=== PATIENT | female | born 1960 | race Caucasian/White ===

== ENCOUNTER → 2017-09-01 | Outpatient (CLI) | payer BC ==
[~2017-09-01] MED LIST: CHOL100010 PO; CMD5 PO; CYAN3INJ; EFF50 PO; OXYC-57 PO; SIMV40TA2 PO; VSC/5 PO
--- NOTE | 2017-09-01 15:27 | DIAGNOSTIC IMAGING REPORT ---
KUB CLINICAL HISTORY: N20.0 [id number] H/O renal calculi COMPARISON STUDY: 04/06/2015 FINDINGS: There is moderate stool throughout the colon. There is no pathologic bowel dilatation. There are postsurgical changes of a total right hip arthroplasty. Osteoarthritic changes are present within the left hip. There is a 2.5 mm calcification at the L2-3 level on the left.. A proximal left ureteral calculus cannot be excluded. IMPRESSION: 1. Fecal retention 2. No renal calculi identified although the renal shadows are largely obscured by overlying bowel gas and fecal material 3. Nonspecific 2.5 mm calcification at the L2-3 level on the left. A proximal left ureteral calculus cannot be excluded Electronically signed by: Reuben Taylor M.D. 09/01/2017 3:26 PM Dictated Date/Time: 09/01/2017 3:24 PM
== END | disposition home or self-care (01) ==
LOC: C.RAD 14:44
PROVIDERS: ATTEND Nurse Practitioner Family
DX: N20.0 Calculus of kidney (principal); Z87.442 Personal history of urinary calculi; K59.00 Constipation, unspecified

== ENCOUNTER 2022-12-27 19:31 | Inpatient (IN) ==
[2022-12-27 21:15] LABS: Appearance Urine Cloudy (Clear); Bacteria Urine Automated 4+ (Negative); Bilirubin Urine Negative (Negative); Blood Urine Trace (Negative); Color Urine Yellow; Epithelial Cell Urine Auto >30 /lpf (0-5); Glucose Urine UA Negative (Negative); Ketones Urine Negative (Negative); Leukocyte Esterase Urine 1+ (Negative); Nitrite Urine Positive (Negative); Protein Urine Trace (Negative); RBC Urine Automated 0-4 /hpf (0-4); Specific Gravity Urine 1.013 (1.000-1.030); Urobilinogen Urine Negative (Negative)
[2022-12-27 21:27] LABS: Albumin Globulin Ratio 1.6 (0.9-2); Albumin Level 4.5 gm/dl (3.4-5.0); BUN Creatinine Ratio 14.1 (10-20); Bilirubin,Total 0.5 mg/dl (0.2-1.0); Creatinine Clr Calc Pharmacy 58.9 ml/min; Est GFR (African American) 70.3 ml/min; Est GFR (Non-African American) 60.6 ml/min; Globulin 2.8 gm/dl (2.5-4.0); Potassium 4.1 mmol/L (3.5-5.1); Total Protein 7.3 gm/dl (6.0-8.3)
[2022-12-27 21:48] LABS: Basophils # (auto) 0.03 K/uL (0-0.2); Basophils % (auto) 0.3 %; Eosinophils # (auto) 0.17 K/uL (0-0.50); Eosinophils % (auto) 1.6 %; Hematocrit (blood only) 39.8 % (37.0-47.0); Hemoglobin 13.2 g/dl (12.0-16.0); Immature Granulocytes # (auto) 0.03 K/uL (0.01-0.20); Immature Granulocytes % (auto) 0.3 %; Lymphocytes % (auto) 19.5 %; Mean Corpuscular Hemoglobin 32.2 pg (25.0-34.0); Mean Corpuscular Hgb Conc 33.2 g/dL (32.0-36.0); Mean Corpuscular Volume 97.1 fL (80.0-100.0); Mean Platelet Volume 11.2 fL (9.4-12.4); Monocytes # (auto) 0.64 K/uL (0.11-0.59); Neutrophils # (auto) 7.78 K/uL (1.40-6.50); Neutrophils % (auto) 72.3 %; Platelet Count 141 K/uL (130-400); RDW Coefficient of Variation 13.4 % (11.5-14.5); RDW Standard Deviation 47.8 fL (36.4-46.3); White Blood Count 10.75 K/ul (4.8-10.8)
[2022-12-27] MEDS ORDERED: HYDROmorphone INJ 0.5 MG/0.5 ML SYR IV STA (21:54)
[2022-12-27] MEDS ORDERED: SODIUM CHLORIDE 0.9% 500 ML IV ONE (21:54)
[2022-12-27] MEDS ORDERED: ONDANSETRON INJ 2 MG/ML 2 ML VIAL IV STA (21:54)
[2022-12-27] MEDS ORDERED: cefTRIAXone SODIUM 1,000 MG in DEXTROSE 5% AD-VAN 50 ML IV STA (21:56)
[2022-12-27] MEDS ORDERED: OPTIRAY 350 100ml IV ONE (23:01)
--- NOTE | 2022-12-28 00:01 | Emergency Department Note ---
History of Present Illness General Chief complaint: GI Assessment Stated complaint: ABDOMINAL PAIN, REF BY Time Seen by Provider: 12/27/22 21:47 History of Present Illness Maximum Pain Intensity: 9 This 62-year-old female presents to the ER complaining of lower abdominal pain no bowel movement for the past few days she is concerned she has a recurrent bowel obstruction. Patient took Imodium earlier in the week as she had diarrhea and for the past 2 days she had no bowel movement. She had a colon resection in the past. She had adhesions lysed in the past. Patient denies chest pain, dyspnea, fevers, flulike illness. No urinary symptoms. Home Medications Medication Instructions Recorded Confirmed Type acetaminophen 500 mg tablet 1,000 mg PO DIRECTED PRN Pain 02/21/19 12/27/22 History (Tylenol Extra Strength) aspirin 81 mg tablet,delayed 81 mg PO HS 02/21/19 12/27/22 History release (Scot Low Dose Aspirin) atorvastatin 80 mg tablet 80 mg PO HS 02/21/19 12/27/22 History bupropion HCl 150 mg tablet,12 hr 150 mg PO HS 02/21/19 12/27/22 History sustained-release clopidogrel 75 mg tablet 75 mg PO HS 02/21/19 12/27/22 History cyanocobalamin (vitamin B-12) 1,000 mcg PO HS 02/21/19 12/27/22 History 1,000 mcg tablet (Vitamin B-12) pantoprazole 40 mg tablet,delayed 40 mg PO HS 02/21/19 12/27/22 History release solifenacin 10 mg tablet 10 mg PO HS 06/18/19 12/27/22 History Saccharomyces boulardii 250 mg 250 mg PO HS 12/27/22 12/27/22 History capsule (Florastor) Allergies Allergy/AdvReac Type Severity Reaction Status Date / Time morphine AdvReac Intermediate Vomiting Verified 12/27/22 23:01 Past Med/Surg History Medical History GERD (gastroesophageal reflux disease) Hemorrhoids Hyperlipidemia On clopidogrel therapy Surgical History H/O colectomy H/O knee surgery H/O: hysterectomy Family History Other No significant family history Social History Smoking Status: Current every day smoker Tobacco Type: Cigarettes Preferred Language: Slovenian marital status: current occupational status: employed Feels Safe at Home: Yes Review of Systems A total of 10 systems reviewed and were otherwise negative Physical Exam Vital Signs Vital Signs - 24 hr 12/27/22 19:38 12/28/22 00:43 12/28/22 01:56 Temperature 36.9 C Temperature Source Temporal Artery Scan Pulse Rate 111 H 61 Pulse Rate [Left Finger] 66 Respiratory Rate 18 18 Respiratory Effort / Characteristics Non-Labored Spontaneous Respiratory Depth Normal Blood Pressure 129/68 Blood Pressure [Right Arm] 115/57 L Blood Pressure Mean 88 Blood Pressure Mean [Right Arm] 76 Pulse Oximetry 97 99 Oxygen Delivery Method Room Air Room Air Sepsis Recent Fever Within 48 Hours No Sepsis New/Unexplained Change in Mental Status No Sepsis Action Taken by Nursing No Action Required 12/27/22 22:11 12/28/22 02:07 Temperature Temperature Source Pulse Rate 73 Pulse Rate [Left Finger] 61 Respiratory Rate 18 Respiratory Effort / Characteristics Respiratory Depth Blood Pressure Blood Pressure [Right Arm] 127/57 L Blood Pressure Mean Blood Pressure Mean [Right Arm] 80 Pulse Oximetry 95 Oxygen Delivery Method Room Air Sepsis Recent Fever Within 48 Hours Sepsis New/Unexplained Change in Mental Status Sepsis Action Taken by Nursing VITALS: Vitals are noted on the nurse's note and reviewed by myself. Vital signs stable. GENERAL: Pleasant female, in no acute distress, nondiaphoretic, well-developed well-nourished. SKIN: The skin was without rashes, erythema, edema, or bruising. There is no tenting of the skin. Capillary reflex less than 2 seconds. HEAD: Normocephalic atraumatic. EARS: External auditory canals clear, EYES: Pupils equal round and reactive to light and accommodation. Conjunctivae without injection, sclerae without icterus. Extraocular movements intact. NOSE: Patent, turbinates without inflammation or discharge. MOUTH: Mucous membranes moist. Pharynx without erythema or exudate. Uvula midline. Airway patent. Tongue does not deviate. NECK: Supple without nuchal rigidity. No lymphadenopathy. No thyromegaly. Cervical spine is nontender. No JVD. HEART: Regular rate and rhythm LUNGS: Clear to auscultation bilaterally without wheezes, rales or rhonchi. No retractions or accessory muscle use. ABDOMEN: Positive bowel sounds x 4. Normal tympanic percussion. Soft, tender lower abdomen, without masses or organomegaly. Kaiser sign negative. No guarding or rebound tenderness. No CVA tenderness MUSCULOSKELETAL: No muscle atrophy, erythema, or edema noted. NEURO: Patient was alert and oriented to person place and time. Normal sensation to light and sharp touch. No focal neurological deficits. Course Administered Medications Discontinued Medications Hydromorphone HCl (Hydromorphone Inj 0.5 Mg/0.5 Ml Syr) 0.5 mg IV NOW STA Stop: 12/27/22 21:55 Last Admin: 12/27/22 22:06 Dose: 0.5 mg Documented By: BETTY Hydromorphone HCl (Hydromorphone Inj 0.5 Mg/0.5 Ml Syr) 0.5 mg IV NOW STA Stop: 12/28/22 00:25 Last Admin: 12/28/22 00:40 Dose: 0.5 mg Documented By: BOB Hydromorphone HCl (Hydromorphone Inj 0.5 Mg/0.5 Ml Syr) 0.5 mg IV NOW STA Stop: 12/28/22 02:36 Last Admin: 12/28/22 02:45 Dose: 0.5 mg Documented By: BETTY Sodium Chloride (Nss) 500 mls @ 999 mls/hr IV .Q31M ONE Stop: 12/27/22 22:24 Last Infusion: 12/27/22 22:37 Dose: 0 mls/hr Documented By: Admin: 12/27/22 22:06 Dose: 999 mls/hr Documented By: BETTY Ceftriaxone Sodium 1,000 mg/ (Dextrose) 50 mls @ 100 mls/hr IV NOW STA Stop: 12/27/22 22:25 Last Infusion: 12/27/22 23:59 Dose: 0 mls/hr Documented By: Admin: 12/27/22 22:29 Dose: 100 mls/hr Documented By: BETTY Ioversol (Optiray 350 100ml) 84 ml IV ONCE ONE Stop: 12/27/22 23:02 Last Admin: 12/27/22 23:02 Dose: 84 ml Documented By: MADELIN Ondansetron HCl (Ondansetron Inj 2 Mg/Ml 2 Ml Vial) 4 mg IV NOW STA Stop: 12/27/22 21:55 Last Admin: 12/27/22 22:06 Dose: 4 mg Documented By: BETTY Medical Decision Making Medical Records Attestation: I reviewed the patient's medical records. Home Medications Current Medication List: was personally reviewed by me Laboratory Data Attestation: I reviewed the patient's lab results. 12/27/22 20:46 12/27/22 20:46 Lab Results 12/27/22 12/27/22 12/27/22 Range/Units 20:46 20:46 Unknown WBC 10.75 (4.8-10.8) K/ul RBC 4.10 L (4.20-5.40) M/uL Hgb 13.2 (12.0-16.0) g/dl Hct 39.8 (37.0-47.0) % MCV 97.1 (80.0-100.0) fL MCH 32.2 (25.0-34.0) pg MCHC 33.2 (32.0-36.0) g/dL RDW Std Deviation 47.8 H (36.4-46.3) fL RDW Coeff of Lela 13.4 (11.5-14.5) % Plt Count 141 (130-400) K/uL MPV 11.2 (9.4-12.4) fL Immature Gran % (Auto) 0.3 % Neut % (Auto) 72.3 % Lymph % (Auto) 19.5 % [place] % (Auto) 6.0 % Eos % (Auto) 1.6 % Baso % (Auto) 0.3 % Neut # (Auto) 7.78 H (1.40-6.50) K/uL Lymph # (Auto) 2.10 (1.2-3.4) K/uL [place] # (Auto) 0.64 H (0.11-0.59) K/uL Eos # (Auto) 0.17 (0-0.50) K/uL Baso # (Auto) 0.03 (0-0.2) K/uL Immature Gran # (Auto) 0.03 (0.01-0.20) K/uL Sodium 141 (136-145) mmol/L Potassium 4.1 (3.5-5.1) mmol/L Chloride 108 H (98-107) mmol/L Carbon Dioxide 27 (21-32) mmol/L Anion Gap 6 (3-11) BUN 14 (6-23) mg/dl Creatinine 0.99 (0.6-1.2) mg/dl Est Cr Clr Drug Dosing 58.9 ml/min Est GFR ( Amer) 70.3 ml/min Est GFR (Non-Af Amer) 60.6 ml/min BUN/Creatinine Ratio 14.1 (10-20) Glucose 95 (70-99(Fasting)) mg/dl Calcium 10.0 (8.5-10.1) mg/dl Total Bilirubin 0.5 (0.2-1.0) mg/dl AST 16 (13-39) U/L ALT 16 (7-52) U/L Alkaline Phosphatase 92 (34-104) U/L Total Protein 7.3 (6.0-8.3) gm/dl Albumin 4.5 (3.4-5.0) gm/dl Globulin 2.8 (2.5-4.0) gm/dl Albumin/Globulin Ratio 1.6 (0.9-2) Lipase 19 (11-82) U/L Urine Color Yellow Urine Appearance Cloudy A (Clear) Urine pH 6.0 (4.5-7.5) Ur Specific [place] 1.013 (1.000-1.030) Urine Protein Trace H (Negative) Urine Glucose (UA) Negative (Negative) Urine Ketones Negative (Negative) Urine Blood Trace H (Negative) Urine Nitrite Positive A (Negative) Urine Bilirubin Negative (Negative) Urine Urobilinogen Negative (Negative) Ur Leukocyte Esterase 1+ H (Negative) Urine WBC (Auto) 10-30 H (0-5) /hpf Urine RBC (Auto) 0-4 (0-4) /hpf U Hyaline Cast (Auto) 1-5 (0-5) /lpf U Epithel Cells (Auto) >30 H (0-5) /lpf Urine Bacteria (Auto) 4+ H (Negative) Imaging Data Attestation: I personally reviewed and interpreted this imaging study as follows: Radiologist's Impression: Abdomen/Pelvis CT 12/27/22 21:54 Exam(s): CT ABDOMEN + PELVIS With Contrast IV Amt: 84ml EXAM: CT Abdomen and Pelvis With Intravenous Contrast CLINICAL HISTORY: Reason for exam: lower abd pain, hx SBO, no BM, UTI. TECHNIQUE: Axial computed tomography images of the abdomen and pelvis with intravenous contrast. CTDI is 10.87 mGy and DLP is 548.92 mGy-cm. Automated exposure control was utilized for the study. A dose lowering technique was utilized adhering to the principles of ALARA. CONTRAST: Patient received 84ml of IV contrast COMPARISON: No relevant prior studies available. FINDINGS: Lung bases: Unremarkable. No mass. No consolidation. ABDOMEN: Liver: Unremarkable. No mass. Gallbladder and bile ducts: Unremarkable. No calcified stones. No ductal dilation. Pancreas: Unremarkable. No mass. No ductal dilation. Spleen: Unremarkable. No splenomegaly. Adrenals: Unremarkable. No mass. Kidneys and ureters: Unremarkable. No solid mass. No hydronephrosis. Stomach and bowel: There is moderate fluid distention of proximal small bowel loops. The appearance is compatible with a small bowel obstruction, transition point is suggested in the right hemiabdomen (image 55 series 2). No evidence for perforation. No mucosal thickening. PELVIS: Appendix: No findings to suggest acute appendicitis. Bladder: Unremarkable. No mass. Reproductive: Status post hysterectomy. ABDOMEN and PELVIS: Intraperitoneal space: Unremarkable. No free air. No significant fluid collection. Bones/joints: Status post right total hip arthroplasty. No acute fracture. No dislocation. Soft tissues: Unremarkable. Vasculature: There is diffuse atherosclerotic calcification of the aorta and its major branch vessels. No abdominal aortic aneurysm. Lymph nodes: Unremarkable. No enlarged lymph nodes. IMPRESSION: Small bowel obstruction with transition point suggested in the low right hemiabdomen. No evidence for perforation. Electronically signed by: Epifanio Cummins MD 12/28/22 01:12 AM [facility] Narrative Prior records/ancillary studies reviewed. Triage Nursing notes reviewed. Additional history obtained from family. The patient's history was concerning for abdominal pain. Differential diagnosis: Etiologies such as appendicitis, diverticulitis, PUD, biliary pathology, UTI, pancreatitis, obstruction, mesenteric ischemia, aortic pathology, infections, inflammatory bowel disease, renal colic, as well as others were entertained. Physical examination findings: As above. ER treatment provided: An order was placed for continuous cardiac monitoring. The monitor shows a rate of 60-1 50 with a sinus rhythm per my Independent interpretation. IV fluids, Dilaudid, Zofran, Rocephin were ordered On reassessment the patient felt better. Diagnostics interpreted by me: The labs Independently Interpreted by myself revealed urine concerning for infection and sent for culture. No worrisome leukocytosis [address] [address] / Director: Corwin Cedillo M.D. Clinical Laboratory Report Name: CHELSEA KIM Acct: [id number] Status: ON LICENSE OF [facility] : 1960 [facility] [place] Date: 05/03/22 Age: 62 Sex: F Dis Date: Loc: Emergency Department Spec: [id number] Collected: 05/03/22 Received: 05/03/[address]: MANDY,ED Copy To: Long Bender M.D. Source: Urine,Clean Catch OV Order: Ordered: Urine Culture Procedure Result Verified Site Urine Culture Final 05/05/22 Organism 1 Escherichia coli [place] Count >100,000 CFU/ml Sens Sensitivities to Follow E coli RX M.I.C. --- --------- Amox/Clav S <=8/4 Ampicillin S <=8 Amp/Sul S <=8/4 Cefazolin S <=2 Cefepime S <=2 Ceftriaxone S <=1 Ciprofloxacin R >2 Ertapenem S <=0.5 Gentamicin S <=4 Levofloxacin R >4 Meropenem S <=1 Nitrofurantoin S <=32 Tobramycin S <=4 Trimeth/Sulfa R >2/38 Pip/Tazo S <=16 S = SENSITIVE I = INTERMEDIATE R = RESISTANT Imaging studies: CT is concerning for bowel obstruction per my independent interpretation Consultation: A consultation was placed with the hospitalist. The case was discussed and diagnostics were reviewed. The patient was evaluated in the ER for further treatment. Exam and history seem consistent with small bowel obstruction And urinary tract infection. Prior urine culture was reviewed pPatient was given multiple rounds of pain medication. She was not vomiting. Imaging was concerning for bowel obstruction. Medicine was consulted and she will be admitted to the medical service. Patient is agreeable By the evaluation outlined above emergent etio logies such as appendicitis, diverticulitis, PUD, biliary pathology, pancreatitis, mesenteric ischemia, aortic pathology, inflammatory bowel disease, renal colic, as well as others were deemed relatively unlikely. The pt informed about the findings as listed above. All questions were answered and pleased with the treatment. The chart was completed utilizing [employer] Speech voice recognition software. Grammatical errors, random word insertions, pronoun errors, and incomplete sentences are an occassional consequence of this system due to software limitations, ambient noise, and hardware issues. Any formal questions or concerns about the content, text, or information contained within the body of this dictation should be directly addressed to the physician therapy administrative assistant for clarification. Impression & Plan SBO (small bowel obstruction), Acute UTI Discharge Plan Visit Data Chief Complaint: GI Assessment Stated Complaint: ABDOMINAL PAIN, REF BY ED Provider: Long Bender ED Midlevel Provider: Stefanie Cummins Discharge Problem: SBO (small bowel obstruction), Acute UTI Patient Disposition: Admitted As Inpatient Condition: Good Forms Stand Alone Forms: [place] Prescriptions Prescriptions: No Action solifenacin 10 mg tablet 10 mg PO HS bupropion HCl 150 mg Tablet Sustained-Release 12 Hr 150 mg PO HS atorvastatin 80 mg Tablet 80 mg PO HS cyanocobalamin (vitamin B-12) [Vitamin B-12] 1,000 mcg Tablet 1,000 mcg PO HS clopidogrel 75 mg Tablet 75 mg PO HS aspirin [Scot Low Dose Aspirin] 81 mg Tablet,Delayed Release (Dr/Ec) 81 mg PO HS acetaminophen [Tylenol Extra Strength] 500 mg Tablet 1,000 mg PO DIRECTED PRN (Reason: Pain) pantoprazole 40 mg tablet,delayed release (DR/EC) 40 mg PO HS Saccharomyces boulardii [Florastor] 250 mg capsule 250 mg PO HS Rx Instructions: PER PT "HAVEN'T HAD FOR A COUPLE OF DAYS". Referrals Referrals: Jerry Asher MD [Primary Care Provider] -
[2022-12-28] MEDS ORDERED: HYDROmorphone INJ 0.5 MG/0.5 ML SYR IV STA ×2 (00:24→02:35)
--- NOTE | 2022-12-28 01:13 | CT Scan Report ---
Exam(s): CT ABDOMEN + PELVIS With Contrast IV Amt: 84ml EXAM: CT Abdomen and Pelvis With Intravenous Contrast CLINICAL HISTORY: Reason for exam: lower abd pain, hx SBO, no BM, UTI. TECHNIQUE: Axial computed tomography images of the abdomen and pelvis with intravenous contrast. CTDI is 10.87 mGy and DLP is 548.92 mGy-cm. Automated exposure control was utilized for the study. A dose lowering technique was utilized adhering to the principles of ALARA. CONTRAST: Patient received 84ml of IV contrast COMPARISON: No relevant prior studies available. FINDINGS: Lung bases: Unremarkable. No mass. No consolidation. ABDOMEN: Liver: Unremarkable. No mass. Gallbladder and bile ducts: Unremarkable. No calcified stones. No ductal dilation. Pancreas: Unremarkable. No mass. No ductal dilation. Spleen: Unremarkable. No splenomegaly. Adrenals: Unremarkable. No mass. Kidneys and ureters: Unremarkable. No solid mass. No hydronephrosis. Stomach and bowel: There is moderate fluid distention of proximal small bowel loops. The appearance is compatible with a small bowel obstruction, transition point is suggested in the right hemiabdomen (image 55 series 2). No evidence for perforation. No mucosal thickening. PELVIS: Appendix: No findings to suggest acute appendicitis. Bladder: Unremarkable. No mass. Reproductive: Status post hysterectomy. ABDOMEN and PELVIS: Intraperitoneal space: Unremarkable. No free air. No significant fluid collection. Bones/joints: Status post right total hip arthroplasty. No acute fracture. No dislocation. Soft tissues: Unremarkable. Vasculature: There is diffuse atherosclerotic calcification of the aorta and its major branch vessels. No abdominal aortic aneurysm. Lymph nodes: Unremarkable. No enlarged lymph nodes. IMPRESSION: Small bowel obstruction with transition point suggested in the low right hemiabdomen. No evidence for perforation. Electronically signed by: Epifanio Cummins MD 12/28/22 01:12 AM
--- NOTE | 2022-12-28 04:32 | History and Physical Report ---
DATE OF ADMISSION: 12/27/2022. CHIEF COMPLAINT: Abdominal pain. HISTORY OF PRESENT ILLNESS: This is a 62-year-old female with past medical history significant for hyperlipidemia, peripheral vascular disease, history of depression, history of colon polyps, status post laparoscopic colectomy, history of bowel obstruction, presents with abdominal pain. The patient had laparoscopic partial colectomy with coloproctostomy in January 2019 at [facility] [place] then after that in June, she did have small-bowel obstruction 5 months postop that was managed with exploratory laparotomy and lysis of adhesions. The patient since surgery is having some fecal incontinence and and she saw recently colorectal surgeon at [facility] and recommended to take Imodium and also fiber supplement, which she was taking.But last Friday, she started to have abdominal discomfort. She stopped taking Imodium. Stools are more solid and yesterday she developed significant abdominal pain and today it got worse. She called Surgery at [facility] and they recommended if the pain does not get better, come to the ER. That is the reason she came here. Her pain is getting worse, 10/10 severity in the lower abdomen. Her last bowel movement was in Friday, was small amount and she is passing small amount of gas. Denies any nausea, vomiting. Required Multiple doses pain medications in the ER. Denies any chest pain, no shortness of breath, no cough, no fevers, no headache, no dizziness, no blurred visions, no earache, no runny nose, no sore throat, no difficulty swallowing. She is able to take her pills. No blood in the stools. No hematuria. No burning micturition, no frequent urination. ALLERGIES: MORPHINE. PAST MEDICAL HISTORY: As mentioned above. PAST SURGICAL HISTORY: Attach bladder/ urethra simple, colonoscopy with biopsy, colonoscopy with multiple polyps taken out, EGDs, fem-pop arterial revascularization with stent and angioplasty, iliac artery revascularization, right hip replacement, flexible sigmoidoscopy, knee arthroscopy, laparoscopic partial colectomy with coloproctostomy in January 2019, exploration of abdomen in 06/2019, laser trabeculoplasty, appendectomy, cataract surgeries, total abdominal hysterectomy with removal of tubes. MEDICATIONS: The patient is on Tylenol Extra Strength 1000 mg p.o. p.r.n., aspirin 81 mg p.o. at bedtime, atorvastatin 80 mg p.o. at bedtime, bupropion 150 mg p.o. at bedtime, Plavix 75 mg p.o. at bedtime, vitamin B12 1000 mcg p.o. at bedtime, Protonix 40 mg p.o. at bedtime, Florastor 250 mg p.o. at bedtime, solifenacin 10 mg p.o. at bedtime. FAMILY HISTORY: Significant for father has abdominal aortic aneurysm and heart disorder; mother has MIs. SOCIAL HISTORY: , currently smoking half pack of cigarettes daily. Alcohol, social drinking, no drug use. REVIEW OF SYSTEMS: As per HPI. Rest of review of systems is negative. PHYSICAL EXAMINATION: GENERAL: The patient is of moderate build, not in acute distress. VITAL SIGNS: Temperature 36.9, pulse 61, respiratory rate 18, blood pressure 127/57, oxygen 95% on room air. HEENT: Pupils equal, round and reactive to light. Oral mucosa moist. NECK: No JVD, no neck masses. CARDIOVASCULAR: S1 and S2 heard. Regular rate and rhythm. No murmur, no gallop. RESPIRATORY SYSTEM: Normal AP diameter. No accessory muscle use. No wheezing or crackles. ABDOMEN: Soft, bowel sounds sluggish. Diffuse tenderness, more in the left lower quadrant with mild guarding, no rigidity, no distention. CENTRAL NERVOUS SYSTEM: Cranial nerves II through XII grossly intact, nonfocal. EXTREMITIES: No edema, no erythema. LABORATORY DATA: WBC 10.7, hemoglobin 13.2, hematocrit 39.8, platelets 141. Sodium 141, potassium 4.1, chloride 108, bicarbonate 27, BUN 14, creatinine 0.99, serum glucose 95, calcium 10, total bilirubin 0.5, AST 16, ALT 16, alkaline phosphatase 92, lipase 19. Urinalysis, positive for nitrite, +1 leukocyte esterase, +4 bacteria. SARS-CoV-2 rapid test negative. IMAGING DATA: CT abdomen and pelvis with IV contrast shows small-bowel obstruction with transition point in the low right tereza abdomen. No evidence of perforation. ASSESSMENT AND PLAN: This is a 62-year-old female who presents with small-bowel obstruction. 1. Small-bowel obstruction. The patient has history of laparoscopic partial colectomy with coloproctostomy because of the colon polyps in January 2019. After that she has one bowel obstruction in June 2019 and status post exploratory laparotomy , presents with abdominal pain and found to have bowel obstruction. The patient has no nausea or vomiting.Will currently keep her n.p.o., IV fluids, IV antiemetics, IV Dilaudid p.r.n. Consult surgery in the a.m. Monitor in the medical floor. 2. Urinary tract infection. Started on Rocephin. Follow the cultures. 3. History of peripheral vascular disease, status post surgical procedures in the past. Continue her aspirin, Plavix and statin for now. 4. Depression. On bupropion. 5. Gastroesophageal reflux disease. On Protonix. 6. Deep venous thrombosis prophylaxis. Lovenox. DISPOSITION: Closely monitor in the medical floor. PT, OT prior to discharge. Social service to help with discharge planning. Job ID: [id number] [id number]
[2022-12-28] MEDS ORDERED: ACETAMINOPHEN 325 MG TAB PO PRN (04:49)
[2022-12-28] MEDS ORDERED: HYDROmorphone INJ 0.5 MG/0.5 ML SYR IV PRN (04:49)
[2022-12-28] MEDS ORDERED: ONDANSETRON INJ 2 MG/ML 2 ML VIAL IV PRN (04:49)
[2022-12-28] MEDS: D5W AND 1/2NSS 1,000 ML IV SCH ×3 (05:23→22:18)
[2022-12-28 07:04] LABS: Basophils # (auto) 0.02 K/uL (0-0.2); Basophils % (auto) 0.3 %; Eosinophils # (auto) 0.14 K/uL (0-0.50); Eosinophils % (auto) 1.9 %; Hematocrit (blood only) 34.7 % (37.0-47.0); Hemoglobin 11.1 g/dl (12.0-16.0); Immature Granulocytes # (auto) 0.03 K/uL (0.01-0.20); Immature Granulocytes % (auto) 0.4 %; Lymphocytes # (auto) 1.67 K/uL (1.2-3.4); Mean Corpuscular Hemoglobin 31.5 pg (25.0-34.0); Mean Corpuscular Volume 98.6 fL (80.0-100.0); Mean Platelet Volume 11.5 fL (9.4-12.4); Monocytes # (auto) 0.47 K/uL (0.11-0.59); Monocytes % (auto) 6.5 %; Neutrophils # (auto) 4.94 K/uL (1.40-6.50); Neutrophils % (auto) 67.9 %; Platelet Count 110 K/uL (130-400); RDW Coefficient of Variation 13.3 % (11.5-14.5); Red Blood Count 3.52 M/uL (4.20-5.40); White Blood Count 7.27 K/ul (4.8-10.8)
[2022-12-28 07:14] LABS: Calcium 8.7 mg/dl (8.5-10.1); Creatinine Clr Calc Pharmacy 58.8 ml/min; Est GFR (African American) 69.4 ml/min; Est GFR (Non-African American) 59.9 ml/min; Magnesium 1.7 mg/dl (1.7-2.4); Potassium 3.9 mmol/L (3.5-5.1)
[2022-12-28] MEDS: ENOXAPARIN INJ 40 MG/0.4 ML SYR SQ SCH (09:05)
--- NOTE | 2022-12-28 11:09 | Surgery Consultation ---
Date of Consultation December 28, 2022 Assessment & Plan (1) SBO (small bowel obstruction): pt is a 62 year-old female who was admitted to hospital for SBO, IMP: SBO, Plan, no emergent surgery indication now, conservative treatment, NPO, IV fluid, control pain repeat KUB, labs tomorrow, may need NG tube insertion if pt develops nausea and vomiting, pt dose not want have NG tube now, I also indicated pt may need surgery if pt's symptoms are getting worse, pt said she prefer to back [facility] for her surgery if she need to surgery done, will F/U. History of Present Illness Reason for Consultation: SBO Requesting Physician: Rodrigo Dunne MD Attending Physician: Rodrigo Dunne MD History of Present Illness CHIEF COMPLAINT: Abdominal pain. HISTORY OF PRESENT ILLNESS: This is a 62-year-old female with past medical history significant for hyperlipidemia, peripheral vascular disease, history of depression, history of colon polyps, status post laparoscopic colectomy, history of bowel obstruction, presents with abdominal pain. The patient had laparoscopic partial colectomy with coloproctostomy in January 2019 at [facility] then after that in June, she did have small-bowel obstruction 5 months postop that was managed with exploratory laparotomy and lysis of adhesions. The patient since surgery is having some fecal incontinence and and she saw recently colorectal surgeon at [facility] and recommended to take Imodium and also fiber supplement, which she was taking.But last Friday, she started to have abdominal discomfort. She stopped taking Imodium. Stools are more solid and yesterday she developed significant abdominal pain and today it got worse. She called Surgery at [facility] and they recommended if the pain does not get better, come to the ER. That is the reason she came here. Her pain is getting worse, 10/10 severity in the lower abdomen. Her last bowel movement was in Friday, was small amount and she is passing small amount of gas. Denies any nausea, vomiting. Required Multiple doses pain medications in the ER. Denies any chest pain, no shortness of breath, no cough, no fevers, no headache, no dizziness, no blurred visions, no earache, no runny nose, no sore throat, no difficulty swallowing. She is able to take her pills. No blood in the stools. No hematuria. No burning micturition, no frequent urination. I ( Barrie Fuller MD ) got a call for consult SBO, I reviewed pt;'s H/P, labs and CT scan with pt, pt is still have some RLQ pain, no nausea, no vomiting, no fever, not pass gas or BM for 2-3 days, ALLERGIES: MORPHINE. PAST MEDICAL HISTORY: As mentioned above. PAST SURGICAL HISTORY: Attach bladder/ urethra simple, colonoscopy with biopsy, colonoscopy with multiple polyps taken out, EGDs, fem-pop arterial revascularization with stent and angioplasty, iliac artery revascularization, right hip replacement, flexible sigmoidoscopy, knee arthroscopy, laparoscopic partial colectomy with coloproctostomy in January 2019, exploration of abdomen in 06/2019, laser trabeculoplasty, appendectomy, cataract surgeries, total abdominal hysterectomy with removal of tubes. MEDICATIONS: The patient is on Tylenol Extra Strength 1000 mg p.o. p.r.n., aspirin 81 mg p.o. at bedtime, atorvastatin 80 mg p.o. at bedtime, bupropion 150 mg p.o. at bedtime, Plavix 75 mg p.o. at bedtime, vitamin B12 1000 mcg p.o. at bedtime, Protonix 40 mg p.o. at bedtime, Florastor 250 mg p.o. at bedtime, solifenacin 10 mg p.o. at bedtime. FAMILY HISTORY: Significant for father has abdominal aortic aneurysm and heart disorder; mother has MIs. SOCIAL HISTORY: , currently smoking half pack of cigarettes daily. Alcohol, social drinking, no drug use. REVIEW OF SYSTEMS: As per HPI. Rest of review of systems is negative. Allergies Allergy/AdvReac Type Severity Reaction Status Date / Time morphine AdvReac Intermediate Vomiting Verified 12/27/22 23:01 Home Medications Medication Instructions Recorded Confirmed Type acetaminophen 500 mg tablet 1,000 mg PO DIRECTED PRN Pain 02/21/19 12/27/22 History (Tylenol Extra Strength) aspirin 81 mg tablet,delayed 81 mg PO HS 02/21/19 12/27/22 History release (Scot Low Dose Aspirin) atorvastatin 80 mg tablet 80 mg PO HS 02/21/19 12/27/22 History bupropion HCl 150 mg tablet,12 hr 150 mg PO HS 02/21/19 12/27/22 History sustained-release clopidogrel 75 mg tablet 75 mg PO HS 02/21/19 12/27/22 History cyanocobalamin (vitamin B-12) 1,000 mcg PO HS 02/21/19 12/27/22 History 1,000 mcg tablet (Vitamin B-12) pantoprazole 40 mg tablet,delayed 40 mg PO HS 02/21/19 12/27/22 History release solifenacin 10 mg tablet 10 mg PO HS 06/18/19 12/27/22 History Saccharomyces boulardii 250 mg 250 mg PO HS 12/27/22 12/27/22 History capsule (Florastor) Patient History Medical History GERD (gastroesophageal reflux disease) Hemorrhoids Hyperlipidemia On clopidogrel therapy Surgical History H/O colectomy H/O knee surgery H/O: hysterectomy Family History Other No significant family history Social History Smoking Status: Current every day smoker Tobacco Type: Cigarettes Cigarettes Per Day: 1/2 pack; Do You Dip or Chew Tobacco: No; Tobacco Cessation Education Requested by Patient: No Hx Alcohol Use: No Hx Substance Use: No Preferred Language: Azerbaijani Communication Ability: Effective 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 Beliefs That Will Affect Care: None marital status: Current Living Situation: Alone current occupational status: employed Other Information That Helps Us Care for You: No Feels Safe at Home: Yes Safety Concerns: Feels Safe At This Time Assistive Devices: Denture - Upper, Denture - Lower and Glasses Assistive Devices Comment: dentures partial bottom and full upper and glasses with patient Review of Systems Constitutional: as per Subjective / HPI Eyes: as per Subjective / HPI Respiratory: as per Subjective / HPI Cardiovascular: as per Subjective / HPI Gastrointestinal: S/p colectomy Genitourinary: as per Subjective / HPI Neurologic: as per Subjective / HPI Psychiatric: as per Subjective / HPI Endocrine: as per Subjective / HPI Hematologic / Lymphatic: as per Subjective / HPI Physical Exam Constitutional: WD/WN, vitals as above Eyes: PERRL, conjunctivae normal, anicteric sclerae Neck: trachea midline, no thyromegaly Respiratory: normal respiratory effort, lungs clear to auscultation Cardiovascular: RRR, no murmur, no edema Gastrointestinal (Abdomen): soft, mild tenderness at RLQ, no rebound pain, no distend, BS +, middle line scar, Musculoskeletal: no cyanosis or clubbing, extremities motor strength 5/5 Neurologic: patellar DTR's 2+ bilat, sensation intact Psychiatric: A+Ox3, euthymic affect Results & Data Vital Signs (Past 12 Hours) Vital Signs Temp Pulse Pulse Resp BP Pulse Ox O2 Del Method 12/28/22 07:30 36.8 C 61 16 109/69 98 Room Air 12/28/22 04:40 36.8 C 86 16 139/40 L 96 Room Air 12/28/22 04:18 79 18 115/61 93 Room Air 12/28/22 02:07 61 18 127/57 L 95 Room Air 12/28/22 01:56 61 12/28/22 00:43 66 18 115/57 L 99 Room Air Laboratory Results Abnormal lab results 12/27/22 12/27/22 12/27/22 Range/Units 20:46 20:46 Unknown RBC 4.10 L (4.20-5.40) M/uL Hgb (12.0-16.0) g/dl Hct (37.0-47.0) % RDW Std Deviation 47.8 H (36.4-46.3) fL Plt Count (130-400) K/uL Neut # (Auto) 7.78 H (1.40-6.50) K/uL [place] # (Auto) 0.64 H (0.11-0.59) K/uL Chloride 108 H (98-107) mmol/L Urine Appearance Cloudy A (Clear) Urine Protein Trace H (Negative) Urine Blood Trace H (Negative) Urine Nitrite Positive A (Negative) Ur Leukocyte Esterase 1+ H (Negative) Urine WBC (Auto) 10-30 H (0-5) /hpf U Epithel Cells (Auto) >30 H (0-5) /lpf Urine Bacteria (Auto) 4+ H (Negative) 12/28/22 12/28/22 Range/Units 06:01 06:01 RBC 3.52 L (4.20-5.40) M/uL Hgb 11.1 L (12.0-16.0) g/dl Hct 34.7 L (37.0-47.0) % RDW Std Deviation 48.0 H (36.4-46.3) fL Plt Count 110 L (130-400) K/uL Neut # (Auto) (1.40-6.50) K/uL Carolina # (Auto) (0.11-0.59) K/uL Chloride 109 H (98-107) mmol/L Urine Appearance (Clear) Urine Protein (Negative) Urine Blood (Negative) Urine Nitrite (Negative) Ur Leukocyte Esterase (Negative) Urine WBC (Auto) (0-5) /hpf U Epithel Cells (Auto) (0-5) /lpf Urine Bacteria (Auto) (Negative) Diagnostic Findings Exam(s): CT ABDOMEN + PELVIS With Contrast IV Amt: 84ml EXAM: CT Abdomen and Pelvis With Intravenous Contrast CLINICAL HISTORY: Reason for exam: lower abd pain, hx SBO, no BM, UTI. TECHNIQUE: Axial computed tomography images of the abdomen and pelvis with intravenous contrast. CTDI is 10.87 mGy and DLP is 548.92 mGy-cm. Automated exposure control was utilized for the study. A dose lowering technique was utilized adhering to the principles of ALARA. CONTRAST: Patient received 84ml of IV contrast COMPARISON: No relevant prior studies available. FINDINGS: Lung bases: Unremarkable. No mass. No consolidation. ABDOMEN: Liver: Unremarkable. No mass. Gallbladder and bile ducts: Unremarkable. No calcified stones. No ductal dilation. Pancreas: Unremarkable. No mass. No ductal dilation. Spleen: Unremarkable. No splenomegaly. Adrenals: Unremarkable. No mass. Kidneys and ureters: Unremarkable. No solid mass. No hydronephrosis. Stomach and bowel: There is moderate fluid distention of proximal small bowel loops. The appearance is compatible with a small bowel obstruction, transition point is suggested in the right hemiabdomen (image 55 series 2). No evidence for perforation. No mucosal thickening. PELVIS: Appendix: No findings to suggest acute appendicitis. Bladder: Unremarkable. No mass. Reproductive: Status post hysterectomy. ABDOMEN and PELVIS: Intraperitoneal space: Unremarkable. No free air. No significant fluid collection. Bones/joints: Status post right total hip arthroplasty. No acute fracture. No dislocation. Soft tissues: Unremarkable. Vasculature: There is diffuse atherosclerotic calcification of the aorta and its major branch vessels. No abdominal aortic aneurysm. Lymph nodes: Unremarkable. No enlarged lymph nodes. IMPRESSION: Small bowel obstruction with transition point suggested in the low right hemiabdomen. No evidence for perforation.
--- NOTE | 2022-12-28 14:12 | Hospitalist Progress Note ---
Date of Service December 28, 2022 Assessment & Plan (1) SBO (small bowel obstruction): Plan: 62-year-old female with past medical history of laparoscopic partial colectomy with coloproctostomy because of the colon polyps in January 2019. Last small bowel obstruction in 2018. Required exploratory laparotomy She presents with abdominal pain and constipation. CT abdomen with IV contrast showed a small bowel obstruction with transition point in low right hemiabdomen. Patient reports that she was recently prescribed Imodium and recommended to be on high-fiber diet by her GI doctor. Surgery on board; conservative management for now. Continue IV fluids. IV Tylenol every 8 hour. As needed avoid. (2) Acute UTI: Plan: Urinalysis suggestive of infection. Started on Rocephin. Follow up on Cx. Plan Other conditions: History of peripheral vascular disease, status post surgical procedures in the past. Continue her aspirin, Plavix and statin for now. Depression. On bupropion. Gastroesophageal reflux disease. On Protonix. Deep venous thrombosis prophylaxis. Lovenox. Admission and Anticipated Discharge Date Admission Date: December 28, 2022 Subjective Patient seen and examined at bedside. She complains of lower abdominal pain; denies any nausea or vomiting. Afebrile; hemodynamic stable and saturating well on room air. Review of Systems Review of Systems: All systems reviewed & are unremarkable except as noted in Subjective Physical Exam Physical Exam: Constitutional: WD/WN, vitals as above, NAD, sitting up in bed, pleasant, conversing easily Respiratory: normal respiratory effort, lungs clear to auscultation, no wheeze, rales, rhonchi. Normal insp/exp effort, no accessory muscle use Cardiovascular: RRR, no murmur, no edema Vessels: no JVD or carotid bruit Chest: normal inspection of chest Abdomen: Soft, nondistended. Tenderness present in lower abdomen. Musculoskeletal: no cyanosis or clubbing, extremities motor strength 5/5 Skin: no rashes, warm and dry normal turgor Neurologic: PERRL, EOMI, accommodation nl, no face palsy, no dysarthria CN's II- XI intact bilaterally and moves all extremities Psychiatric: A+Ox3, euthymic affect Lymphatic: no cervical or axillary lymphadenopathy : deferred Results & Data Results & Data Vital Signs (Past 12 Hours) Vital Signs Temp Pulse Resp BP Pulse Ox O2 Del Method 12/28/22 14:06 36.6 C 67 16 105/61 98 Room Air 12/28/22 07:30 36.8 C 61 16 109/69 98 Room Air 12/28/22 04:40 36.8 C 86 16 139/40 L 96 Room Air 12/28/22 04:18 79 18 115/61 93 Room Air Laboratory Results Laboratory Results WBC 7.27 K/ul (4.8-10.8) 12/28/22 06:01 RBC 3.52 M/uL (4.20-5.40) L 12/28/22 06:01 Hgb 11.1 g/dl (12.0-16.0) L 12/28/22 06:01 Hct 34.7 % (37.0-47.0) L 12/28/22 06:01 MCV 98.6 fL (80.0-100.0) 12/28/22 06:01 MCH 31.5 pg (25.0-34.0) 12/28/22 06:01 MCHC 32.0 g/dL (32.0-36.0) 12/28/22 06:01 RDW Std Deviation 48.0 fL (36.4-46.3) H 12/28/22 06:01 RDW Coeff of Lela 13.3 % (11.5-14.5) 12/28/22 06:01 Plt Count 110 K/uL (130-400) L 12/28/22 06:01 MPV 11.5 fL (9.4-12.4) 12/28/22 06:01 Immature Gran % (Auto) 0.4 % 12/28/22 06:01 Neut % (Auto) 67.9 % 12/28/22 06:01 Lymph % (Auto) 23.0 % 12/28/22 06:01 Esmeralda % (Auto) 6.5 % 12/28/22 06:01 Eos % (Auto) 1.9 % 12/28/22 06:01 Baso % (Auto) 0.3 % 12/28/22 06:01 Neut # (Auto) 4.94 K/uL (1.40-6.50) 12/28/22 06:01 Lymph # (Auto) 1.67 K/uL (1.2-3.4) 12/28/22 06:01 Esmeralda # (Auto) 0.47 K/uL (0.11-0.59) 12/28/22 06:01 Eos # (Auto) 0.14 K/uL (0-0.50) 12/28/22 06:01 Baso # (Auto) 0.02 K/uL (0-0.2) 12/28/22 06:01 Immature Gran # (Auto) 0.03 K/uL (0.01-0.20) 12/28/22 06:01 Sodium 141 mmol/L (136-145) 12/28/22 06:01 Potassium 3.9 mmol/L (3.5-5.1) 12/28/22 06:01 Chloride 109 mmol/L (98-107) H 12/28/22 06:01 Carbon Dioxide 29 mmol/L (21-32) 12/28/22 06:01 Anion Gap 3 (3-11) 12/28/22 06:01 BUN 13 mg/dl (6-23) 12/28/22 06:01 Creatinine 1.00 mg/dl (0.6-1.2) 12/28/22 06:01 Est Cr Clr Drug Dosing 58.8 ml/min 12/28/22 06:01 Est GFR ( Amer) 69.4 ml/min 12/28/22 06:01 Est GFR (Non-Af Amer) 59.9 ml/min 12/28/22 06:01 BUN/Creatinine Ratio 13.0 (10-20) 12/28/22 06:01 Glucose 99 mg/dl (70-99(Fasting)) 12/28/22 06:01 Calcium 8.7 mg/dl (8.5-10.1) 12/28/22 06:01 Magnesium 1.7 mg/dl (1.7-2.4) 12/28/22 06:01 Total Bilirubin 0.5 mg/dl (0.2-1.0) 12/27/22 20:46 AST 16 U/L (13-39) 12/27/22 20:46 ALT 16 U/L (7-52) 12/27/22 20:46 Alkaline Phosphatase 92 U/L (34-104) 12/27/22 20:46 Total Protein 7.3 gm/dl (6.0-8.3) 12/27/22 20:46 Albumin 4.5 gm/dl (3.4-5.0) 12/27/22 20:46 Globulin 2.8 gm/dl (2.5-4.0) 12/27/22 20:46 Albumin/Globulin Ratio 1.6 (0.9-2) 12/27/22 20:46 Lipase 19 U/L (11-82) 12/27/22 20:46 Urine Color Yellow 12/27/22 Unknown Urine Appearance Cloudy (Clear) A 12/27/22 Unknown Urine pH 6.0 (4.5-7.5) 12/27/22 Unknown Ur Specific [place] 1.013 (1.000-1.030) 12/27/22 Unknown Urine Protein Trace (Negative) H 12/27/22 Unknown Urine Glucose (UA) Negative (Negative) 12/27/22 Unknown Urine Ketones Negative (Negative) 12/27/22 Unknown Urine Blood Trace (Negative) H 12/27/22 Unknown Urine Nitrite Positive (Negative) A 12/27/22 Unknown Urine Bilirubin Negative (Negative) 12/27/22 Unknown Urine Urobilinogen Negative (Negative) 12/27/22 Unknown Ur Leukocyte Esterase 1+ (Negative) H 12/27/22 Unknown Urine WBC (Auto) 10-30 /hpf (0-5) H 12/27/22 Unknown Urine RBC (Auto) 0-4 /hpf (0-4) 12/27/22 Unknown U Hyaline Cast (Auto) 1-5 /lpf (0-5) 12/27/22 Unknown U Epithel Cells (Auto) >30 /lpf (0-5) H 12/27/22 Unknown Urine Bacteria (Auto) 4+ (Negative) H 12/27/22 Unknown SARS-CoV-2, RNA, NAAT NEGATIVE (NEGATIVE) 12/28/22 02:25 Impressions Abdomen/Pelvis CT 12/27/22 21:54 Exam(s): CT ABDOMEN + PELVIS With Contrast IV Amt: 84ml EXAM: CT Abdomen and Pelvis With Intravenous Contrast CLINICAL HISTORY: Reason for exam: lower abd pain, hx SBO, no BM, UTI. TECHNIQUE: Axial computed tomography images of the abdomen and pelvis with intravenous contrast. CTDI is 10.87 mGy and DLP is 548.92 mGy-cm. Automated exposure control was utilized for the study. A dose lowering technique was utilized adhering to the principles of ALARA. CONTRAST: Patient received 84ml of IV contrast COMPARISON: No relevant prior studies available. FINDINGS: Lung bases: Unremarkable. No mass. No consolidation. ABDOMEN: Liver: Unremarkable. No mass. Gallbladder and bile ducts: Unremarkable. No calcified stones. No ductal dilation. Pancreas: Unremarkable. No mass. No ductal dilation. Spleen: Unremarkable. No splenomegaly. Adrenals: Unremarkable. No mass. Kidneys and ureters: Unremarkable. No solid mass. No hydronephrosis. Stomach and bowel: There is moderate fluid distention of proximal small bowel loops. The appearance is compatible with a small bowel obstruction, transition point is suggested in the right hemiabdomen (image 55 series 2). No evidence for perforation. No mucosal thickening. PELVIS: Appendix: No findings to suggest acute appendicitis. Bladder: Unremarkable. No mass. Reproductive: Status post hysterectomy. ABDOMEN and PELVIS: Intraperitoneal space: Unremarkable. No free air. No significant fluid collection. Bones/joints: Status post right total hip arthroplasty. No acute fracture. No dislocation. Soft tissues: Unremarkable. Vasculature: There is diffuse atherosclerotic calcification of the aorta and its major branch vessels. No abdominal aortic aneurysm. Lymph nodes: Unremarkable. No enlarged lymph nodes. IMPRESSION: Small bowel obstruction with transition point suggested in the low right hemiabdomen. No evidence for perforation. Electronically signed by: Epifanio Cummins MD 12/28/22 01:12 AM
[2022-12-28] MEDS: ACETAMINOPHEN 1,000 MG/100 ML VIAL IV SCH ×2 (14:15→22:18)
[2022-12-28] MEDS: SACCHAROMYCES BOULARDII 250 MG CAP PO SCH (20:08)
[2022-12-28] MEDS: CYANOCOBALAMIN (B-12) 500 MCG TABLET PO SCH (20:09)
[2022-12-28] MEDS: ASPIRIN 81 MG ECTAB PO SCH (20:09)
[2022-12-28] MEDS: buPROPion SR 150 MG TABCR PO SCH (20:09)
[2022-12-28] MEDS: PANTOprazole 40 MG TAB PO SCH (20:10)
[2022-12-28] MEDS: ATORVASTATIN 40 MG TAB PO SCH (20:10)
[2022-12-28] MEDS: CLOPIDOGREL BISULFATE 75 MG TAB PO SCH (20:10)
[2022-12-28] MEDS: cefTRIAXone SODIUM 1,000 MG in DEXTROSE 5% AD-VAN 50 ML IV SCH (21:37)
[2022-12-29] MEDS: ACETAMINOPHEN 1,000 MG/100 ML VIAL IV SCH ×2 (05:50→14:43)
[2022-12-29] MEDS: D5W AND 1/2NSS 1,000 ML IV SCH (06:16)
[2022-12-29 06:37] LABS: Alanine Aminotransferase 10 U/L (7-52); Albumin Globulin Ratio 1.8 (0.9-2); Albumin Level 3.7 gm/dl (3.4-5.0); Alkaline Phosphatase 71 U/L (34-104); Anion Gap 4 (3-11); BUN Creatinine Ratio 8.9 (10-20); Bilirubin,Total 0.5 mg/dl (0.2-1.0); Blood Urea Nitrogen 8 mg/dl (6-23); Calcium 8.7 mg/dl (8.5-10.1); Carbon Dioxide 26 mmol/L (21-32); Chloride 111 mmol/L (98-107); Creatinine Clr Calc Pharmacy 65.3 ml/min; Est GFR (African American) 78.9 ml/min; Globulin 2.1 gm/dl (2.5-4.0); Glucose 91 mg/dl (70-99(Fasting)); Sodium 141 mmol/L (136-145); Total Protein 5.8 gm/dl (6.0-8.3)
[2022-12-29 07:49] LABS: Basophils # (auto) 0.01 K/uL (0-0.2); Basophils % (auto) 0.2 %; Eosinophils # (auto) 0.08 K/uL (0-0.50); Eosinophils % (auto) 1.8 %; Hematocrit (blood only) 35.2 % (37.0-47.0); Immature Granulocytes # (auto) 0.01 K/uL (0.01-0.20); Immature Granulocytes % (auto) 0.2 %; Lymphocytes # (auto) 1.19 K/uL (1.2-3.4); Lymphocytes % (auto) 26.3 %; Mean Corpuscular Hemoglobin 31.3 pg (25.0-34.0); Mean Corpuscular Hgb Conc 31.3 g/dL (32.0-36.0); Mean Platelet Volume 10.9 fL (9.4-12.4); Monocytes # (auto) 0.27 K/uL (0.11-0.59); Neutrophils # (auto) 2.97 K/uL (1.40-6.50); Neutrophils % (auto) 65.5 %; Platelet Count 103 K/uL (130-400); RDW Coefficient of Variation 13.2 % (11.5-14.5); RDW Standard Deviation 48.3 fL (36.4-46.3); Red Blood Count 3.52 M/uL (4.20-5.40); White Blood Count 4.53 K/ul (4.8-10.8)
[2022-12-29] MEDS: ENOXAPARIN INJ 40 MG/0.4 ML SYR SQ SCH (09:00)
--- NOTE | 2022-12-29 09:01 | XRay Report ---
KUB HISTORY: Small bowel obstruction. Follow-up. COMPARISON: KUB 09/01/2017. Abdomen and pelvis CT 12/27/2022. FINDINGS: Mildly dilated gas-filled loops of small bowel are again seen throughout the abdomen consis tent with patient's known small bowel obstruction. There is gas and stool within the nondilated colon . There is a right hip prosthesis. Vascular calcifications are present. Suture material seen within t he deep pelvis. No renal calculi. No ureteral calculi. No pneumoperitoneum or pneumatosis. IMPRESSION: Persistent small bowel obstruction pattern. ACT 112: Negative or not required by law. Electronically signed by: Quentin Mata M.D. 12/29/2022 9:00 AM
--- NOTE | 2022-12-29 12:21 | Surgery Progress Note ---
Date of Service December 29, 2022 Assessment & Plan (1) SBO (small bowel obstruction): Plan: pt is a 62 year-old female who was admitted to hospital for SBO, IMP: SBO, Plan, no emergent surgery indication now, conservative treatment, NPO, IV fluid, control pain repeat KUB, labs tomorrow, may need NG tube insertion if pt develops nausea and vomiting, pt dose not want have NG tube now, I also indicated pt may need surgery if pt's symptoms are getting worse, pt said she prefer to back [facility] for her surgery if she need to surgery done, will F/U. 12/29/2022 12:21 PM F/U SBO doing better, passed gas and BM clear diet, repeat KUB tomorrow, will F/U, Admission and Anticipated Discharge Date Admission Date: December 28, 2022 Subjective Patient seen and examined at bedside. She complains of lower abdominal pain; denies any nausea or vomiting. Afebrile; hemodynamic stable and saturating well on room air. 12/29/2022 12:19 PM , Dr. Fuller doing better, passed gas and BM, no abdominal pain, no nausea, no vomiting, no fever, Review of Systems Constitutional: as per Subjective / HPI Eyes: as per Subjective / HPI Respiratory: as per Subjective / HPI Cardiovascular: as per Subjective / HPI Gastrointestinal: S/p colectomy Genitourinary: as per Subjective / HPI Neurologic: as per Subjective / HPI Psychiatric: as per Subjective / HPI Endocrine: as per Subjective / HPI Hematologic / Lymphatic: as per Subjective / HPI Physical Exam Constitutional: WD/WN, vitals as above Eyes: PERRL, conjunctivae normal, anicteric sclerae Neck: trachea midline, no thyromegaly Respiratory: normal respiratory effort, lungs clear to auscultation Cardiovascular: RRR, no murmur, no edema Gastrointestinal (Abdomen): soft, NT, ND, BS +, Musculoskeletal: no cyanosis or clubbing, extremities motor strength 5/5 Neurologic: patellar DTR's 2+ bilat, sensation intact Psychiatric: A+Ox3, euthymic affect Results & Data Vital Signs (Past 12 Hours) Vital Signs Temp Pulse Resp BP Pulse Ox O2 Del Method 12/29/22 07:53 36.9 C 60 18 116/70 98 Room Air Laboratory Results Abnormal lab results 12/29/22 12/29/22 Range/Units 05:39 07:29 WBC 4.53 L (4.8-10.8) K/ul RBC 3.52 L (4.20-5.40) M/uL Hgb 11.0 L (12.0-16.0) g/dl Hct 35.2 L (37.0-47.0) % MCHC 31.3 L (32.0-36.0) g/dL RDW Std Deviation 48.3 H (36.4-46.3) fL Plt Count 103 L (130-400) K/uL Lymph # (Auto) 1.19 L (1.2-3.4) K/uL Chloride 111 H (98-107) mmol/L BUN/Creatinine Ratio 8.9 L (10-20) Total Protein 5.8 L D (6.0-8.3) gm/dl Globulin 2.1 L (2.5-4.0) gm/dl Diagnostic Findings KUB HISTORY: Small bowel obstruction. Follow-up. COMPARISON: KUB 09/01/2017. Abdomen and pelvis CT 12/27/2022. FINDINGS: Mildly dilated gas-filled loops of small bowel are again seen throughout the abdomen consistent with patient's known small bowel obstruction. There is gas and stool within the nondilated colon. There is a right hip prosthesis. Vascular calcifications are present. Suture material seen within the deep pelvis. No renal calculi. No ureteral calculi. No pneumoperitoneum or pneumatosis. IMPRESSION: Persistent small bowel obstruction pattern.
--- NOTE | 2022-12-29 12:36 | Hospitalist Progress Note ---
Date of Service December 29, 2022 Assessment & Plan (1) SBO (small bowel obstruction): Plan: 62-year-old female with past medical history of laparoscopic partial colectomy with coloproctostomy because of the colon polyps in January 2019. Last small bowel obstruction in 2018. Required exploratory laparotomy She presents with abdominal pain and constipation. CT abdomen with IV contrast showed a small bowel obstruction with transition point in low right hemiabdomen. Patient reports that she was recently prescribed Imodium and recommended to be on high-fiber diet by her GI doctor. Patient had a large bowel movement on the morning of 12/29. No nausea, vomiting. Patient is started on clear liquid diet. Discussed with surgery. Follow-up KUB tomorrow AM. (2) Acute UTI: Plan: Urinalysis suggestive of infection. Urine culture shows E. coli Sensitive to ceftriaxone; treat for 5 days. Will switch to oral amoxicillin on discharge. Plan Other conditions: History of peripheral vascular disease, status post surgical procedures in the past. Continue her aspirin, Plavix and statin for now. Depression. On bupropion. Gastroesophageal reflux disease. On Protonix. Deep venous thrombosis prophylaxis. Lovenox. Admission and Anticipated Discharge Date Admission Date: December 28, 2022 Subjective Patient seen and examined at bedside. She is comfortably lying in the bed; not in any distress. She reports having a large bowel movement in the morning. Says her abdominal pain is minimal. Review of Systems Review of Systems: All systems reviewed & are unremarkable except as noted in Subjective Physical Exam Physical Exam: Constitutional: WD/WN, vitals as above, NAD, sitting up in bed, pleasant, conversing easily Respiratory: normal respiratory effort, lungs clear to auscultation, no wheeze, rales, rhonchi. Normal insp/exp effort, no accessory muscle use Cardiovascular: RRR, no murmur, no edema Vessels: no JVD or carotid bruit Chest: normal inspection of chest Abdomen: Soft, nondistended. Tenderness present in lower abdomen. Musculoskeletal: no cyanosis or clubbing, extremities motor strength 5/5 Skin: no rashes, warm and dry normal turgor Neurologic: PERRL, EOMI, accommodation nl, no face palsy, no dysarthria CN's II- XI intact bilaterally and moves all extremities Psychiatric: A+Ox3, euthymic affect Lymphatic: no cervical or axillary lymphadenopathy : deferred Results & Data Results & Data Vital Signs (Past 12 Hours) Vital Signs Temp Pulse Resp BP Pulse Ox O2 Del Method 12/29/22 07:53 36.9 C 60 18 116/70 98 Room Air Laboratory Results Laboratory Results WBC 4.53 K/ul (4.8-10.8) L 12/29/22 07:29 RBC 3.52 M/uL (4.20-5.40) L 12/29/22 07:29 Hgb 11.0 g/dl (12.0-16.0) L 12/29/22 07:29 Hct 35.2 % (37.0-47.0) L 12/29/22 07:29 MCV 100.0 fL (80.0-100.0) 12/29/22 07:29 MCH 31.3 pg (25.0-34.0) 12/29/22 07:29 MCHC 31.3 g/dL (32.0-36.0) L 12/29/22 07:29 RDW Std Deviation 48.3 fL (36.4-46.3) H 12/29/22 07:29 RDW Coeff of Lela 13.2 % (11.5-14.5) 12/29/22 07:29 Plt Count 103 K/uL (130-400) L 12/29/22 07:29 MPV 10.9 fL (9.4-12.4) 12/29/22 07:29 Immature Gran % (Auto) 0.2 % 12/29/22 07:29 Neut % (Auto) 65.5 % 12/29/22 07:29 Lymph % (Auto) 26.3 % 12/29/22 07:29 [place] % (Auto) 6.0 % 12/29/22 07:29 Eos % (Auto) 1.8 % 12/29/22 07:29 Baso % (Auto) 0.2 % 12/29/22 07:29 Neut # (Auto) 2.97 K/uL (1.40-6.50) 12/29/22 07:29 Lymph # (Auto) 1.19 K/uL (1.2-3.4) L 12/29/22 07:29 [place] # (Auto) 0.27 K/uL (0.11-0.59) 12/29/22 07:29 Eos # (Auto) 0.08 K/uL (0-0.50) 12/29/22 07:29 Baso # (Auto) 0.01 K/uL (0-0.2) 12/29/22 07:29 Immature Gran # (Auto) 0.01 K/uL (0.01-0.20) 12/29/22 07:29 Absolute Nucleated RBC Cancelled 12/29/22 05:39 Nucleated RBC % (auto) Cancelled 12/29/22 05:39 Neutrophils % (Manual) Cancelled 12/29/22 05:39 Band Neutrophils % Cancelled 12/29/22 05:39 Lymphocytes % (Manual) Cancelled 12/29/22 05:39 Prolymphocyte % Cancelled 12/29/22 05:39 Reactive Lymphs % (Man) Cancelled 12/29/22 05:39 Monocytes % (Manual) Cancelled 12/29/22 05:39 Eosinophils % (Manual) Cancelled 12/29/22 05:39 Basophils % (Manual) Cancelled 12/29/22 05:39 Metamyelocytes % (Man) Cancelled 12/29/22 05:39 Myelocytes % (Man) Cancelled 12/29/22 05:39 Promyelocytes % (Man) Cancelled 12/29/22 05:39 Blast Cells % (Manual) Cancelled 12/29/22 05:39 Plasma Cell % (Manual) Cancelled 12/29/22 05:39 Other Cells % Cancelled 12/29/22 05:39 Nucleated RBC % Cancelled 12/29/22 05:39 Neutrophils # (Manual) Cancelled 12/29/22 05:39 Band Neutrophils # Cancelled 12/29/22 05:39 Total Absolute Neuts Cancelled 12/29/22 05:39 Lymphocytes # (Manual) Cancelled 12/29/22 05:39 Prolymphocyte # Cancelled 12/29/22 05:39 Reactive Lymphs # Cancelled 12/29/22 05:39 Total Abs Lymphocytes Cancelled 12/29/22 05:39 Monocytes # (Manual) Cancelled 12/29/22 05:39 Eosinophils # (Manual) Cancelled 12/29/22 05:39 Basophils # (Manual) Cancelled 12/29/22 05:39 Metamyelocytes # (Man) Cancelled 12/29/22 05:39 Myelocytes # (Manual) Cancelled 12/29/22 05:39 Promyelocytes # (Man) Cancelled 12/29/22 05:39 Blast Cells # (Man) Cancelled 12/29/22 05:39 Plasma Cell # (Manual) Cancelled 12/29/22 05:39 Other Cells # Cancelled 12/29/22 05:39 Nucleated RBCs # (Man) Cancelled 12/29/22 05:39 Hypersegmented Neuts Cancelled 12/29/22 05:39 Hyposegmented Neuts Cancelled 12/29/22 05:39 Hypogranular Neuts Cancelled 12/29/22 05:39 Large Granular Lymphs Cancelled 12/29/22 05:39 # Lrg Granular Lymphs Cancelled 12/29/22 05:39 Hairy Cells Cancelled 12/29/22 05:39 Smudge Cells Cancelled 12/29/22 05:39 Toxic Granulation Cancelled 12/29/22 05:39 Toxic Vacuolation Cancelled 12/29/22 05:39 Dohle Bodies Cancelled 12/29/22 05:39 Lino Rods Cancelled 12/29/22 05:39 Platelet Estimate Cancelled 12/29/22 05:39 Hypogranular Platelets Cancelled 12/29/22 05:39 Giant Platelets Cancelled 12/29/22 05:39 Platelet Satelliting Cancelled 12/29/22 05:39 RBC Morphology Cancelled 12/29/22 05:39 Polychromasia Cancelled 12/29/22 05:39 Hypochromasia Cancelled 12/29/22 05:39 Poikilocytosis Cancelled 12/29/22 05:39 Basophilic Stippling Cancelled 12/29/22 05:39 Anisocytosis Cancelled 12/29/22 05:39 Microcytosis Cancelled 12/29/22 05:39 Macrocytosis Cancelled 12/29/22 05:39 Spherocytes Cancelled 12/29/22 05:39 Pappenheimer Bodies Cancelled 12/29/22 05:39 Sickle Cells Cancelled 12/29/22 05:39 Target Cells Cancelled 12/29/22 05:39 Tear Drop Cells Cancelled 12/29/22 05:39 Ovalocytes Cancelled 12/29/22 05:39 Stomatocytes Cancelled 12/29/22 05:[address] [place] Bodies Cancelled 12/29/22 05:39 Echinocytes Cancelled 12/29/22 05:39 Acanthocytes (Spur) Cancelled 12/29/22 05:39 Rouleaux Cancelled 12/29/22 05:39 RBC Agglutinates Cancelled 12/29/22 05:39 Schistocytes Cancelled 12/29/22 05:39 Sezary Cell Cancelled 12/29/22 05:39 Sodium 141 mmol/L (136-145) 12/29/22 05:39 Potassium TNP 12/29/22 05:39 Chloride 111 mmol/L (98-107) H 12/29/22 05:39 Carbon Dioxide 26 mmol/L (21-32) 12/29/22 05:39 Anion Gap 4 (3-11) 12/29/22 05:39 BUN 8 mg/dl (6-23) 12/29/22 05:39 Creatinine 0.90 mg/dl (0.6-1.2) 12/29/22 05:39 Est Cr Clr Drug Dosing 65.3 ml/min 12/29/22 05:39 Est GFR ( Amer) 78.9 ml/min 12/29/22 05:39 Est GFR (Non-Af Amer) 68.0 ml/min 12/29/22 05:39 BUN/Creatinine Ratio 8.9 (10-20) L 12/29/22 05:39 Glucose 91 mg/dl (70-99(Fasting)) 12/29/22 05:39 Calcium 8.7 mg/dl (8.5-10.1) 12/29/22 05:39 Magnesium 1.7 mg/dl (1.7-2.4) 12/28/22 06:01 Total Bilirubin 0.5 mg/dl (0.2-1.0) 12/29/22 05:39 AST TNP 12/29/22 05:39 ALT 10 U/L (7-52) 12/29/22 05:39 Alkaline Phosphatase 71 U/L (34-104) 12/29/22 05:39 Total Protein 5.8 gm/dl (6.0-8.3) L D 12/29/22 05:39 Albumin 3.7 gm/dl (3.4-5.0) 12/29/22 05:39 Globulin 2.1 gm/dl (2.5-4.0) L 12/29/22 05:39 Albumin/Globulin Ratio 1.8 (0.9-2) 12/29/22 05:39 Lipase 19 U/L (11-82) 12/27/22 20:46 Urine Color Yellow 12/27/22 Unknown Urine Appearance Cloudy (Clear) A 12/27/22 Unknown Urine pH 6.0 (4.5-7.5) 12/27/22 Unknown Ur Specific [place] 1.013 (1.000-1.030) 12/27/22 Unknown Urine Protein Trace (Negative) H 12/27/22 Unknown Urine Glucose (UA) Negative (Negative) 12/27/22 Unknown Urine Ketones Negative (Negative) 12/27/22 Unknown Urine Blood Trace (Negative) H 12/27/22 Unknown Urine Nitrite Positive (Negative) A 12/27/22 Unknown Urine Bilirubin Negative (Negative) 12/27/22 Unknown Urine Urobilinogen Negative (Negative) 12/27/22 Unknown Ur Leukocyte Esterase 1+ (Negative) H 12/27/22 Unknown Urine WBC (Auto) 10-30 /hpf (0-5) H 12/27/22 Unknown Urine RBC (Auto) 0-4 /hpf (0-4) 12/27/22 Unknown U Hyaline Cast (Auto) 1-5 /lpf (0-5) 12/27/22 Unknown U Epithel Cells (Auto) >30 /lpf (0-5) H 12/27/22 Unknown Urine Bacteria (Auto) 4+ (Negative) H 12/27/22 Unknown SARS-CoV-2, RNA, NAAT NEGATIVE (NEGATIVE) 12/28/22 02:25 Blood Parasites ID Cancelled 12/29/22 05:39 Impressions Abdomen/Pelvis CT 12/27/22 21:54 Exam(s): CT ABDOMEN + PELVIS With Contrast IV Amt: 84ml EXAM: CT Abdomen and Pelvis With Intravenous Contrast CLINICAL HISTORY: Reason for exam: lower abd pain, hx SBO, no BM, UTI. TECHNIQUE: Axial computed tomography images of the abdomen and pelvis with intravenous contrast. CTDI is 10.87 mGy and DLP is 548.92 mGy-cm. Automated exposure control was utilized for the study. A dose lowering technique was utilized adhering to the principles of ALARA. CONTRAST: Patient received 84ml of IV contrast COMPARISON: No relevant prior studies available. FINDINGS: Lung bases: Unremarkable. No mass. No consolidation. ABDOMEN: Liver: Unremarkable. No mass. Gallbladder and bile ducts: Unremarkable. No calcified stones. No ductal dilation. Pancreas: Unremarkable. No mass. No ductal dilation. Spleen: Unremarkable. No splenomegaly. Adrenals: Unremarkable. No mass. Kidneys and ureters: Unremarkable. No solid mass. No hydronephrosis. Stomach and bowel: There is moderate fluid distention of proximal small bowel loops. The appearance is compatible with a small bowel obstruction, transition point is suggested in the right hemiabdomen (image 55 series 2). No evidence for perforation. No mucosal thickening. PELVIS: Appendix: No findings to suggest acute appendicitis. Bladder: Unremarkable. No mass. Reproductive: Status post hysterectomy. ABDOMEN and PELVIS: Intraperitoneal space: Unremarkable. No free air. No significant fluid collection. Bones/joints: Status post right total hip arthroplasty. No acute fracture. No dislocation. Soft tissues: Unremarkable. Vasculature: There is diffuse atherosclerotic calcification of the aorta and its major branch vessels. No abdominal aortic aneurysm. Lymph nodes: Unremarkable. No enlarged lymph nodes. IMPRESSION: Small bowel obstruction with transition point suggested in the low right hemiabdomen. No evidence for perforation. Electronically signed by: Epifanio Cummins MD 12/28/22 01:12 AM KUB X-Ray 12/29/22 07:29 KUB HISTORY: Small bowel obstruction. Follow-up. COMPARISON: KUB 09/01/2017. Abdomen and pelvis CT 12/27/2022. FINDINGS: Mildly dilated gas-filled loops of small bowel are again seen throughout the abdomen consistent with patient's known small bowel obstruction. There is gas and stool within the nondilated colon. There is a right hip prosthesis. Vascular calcifications are present. Suture material seen within the deep pelvis. No renal calculi. No ureteral calculi. No pneumoperitoneum or pneumatosis. IMPRESSION: Persistent small bowel obstruction pattern. ACT 112: Negative or not required by law. Electronically signed by: Quentin Mata M.D. 12/29/2022 9:00 AM
[2022-12-29] MEDS: ATORVASTATIN 40 MG TAB PO SCH (20:41)
[2022-12-29] MEDS: ASPIRIN 81 MG ECTAB PO SCH (20:41)
[2022-12-29] MEDS: buPROPion SR 150 MG TABCR PO SCH (20:42)
[2022-12-29] MEDS: CYANOCOBALAMIN (B-12) 500 MCG TABLET PO SCH (20:42)
[2022-12-29] MEDS: CLOPIDOGREL BISULFATE 75 MG TAB PO SCH (20:42)
[2022-12-29] MEDS: cefTRIAXone SODIUM 1,000 MG in DEXTROSE 5% AD-VAN 50 ML IV SCH (20:43)
[2022-12-29] MEDS: PANTOprazole 40 MG TAB PO SCH (20:43)
[2022-12-29] MEDS: SACCHAROMYCES BOULARDII 250 MG CAP PO SCH (20:43)
[2022-12-30 06:46] LABS: Albumin Globulin Ratio 1.8 (0.9-2); Albumin Level 3.8 gm/dl (3.4-5.0); BUN Creatinine Ratio 7.4 (10-20); Basophils # (auto) 0.01 K/uL (0-0.2); Basophils % (auto) 0.2 %; Bilirubin,Total 0.5 mg/dl (0.2-1.0); Calcium 8.8 mg/dl (8.5-10.1); Creatinine Clr Calc Pharmacy 61.9 ml/min; Eosinophils # (auto) 0.08 K/uL (0-0.50); Eosinophils % (auto) 1.8 %; Est GFR (African American) 73.9 ml/min; Est GFR (Non-African American) 63.7 ml/min; Globulin 2.1 gm/dl (2.5-4.0); Hematocrit (blood only) 34.2 % (37.0-47.0); Hemoglobin 10.9 g/dl (12.0-16.0); Lymphocytes # (auto) 1.27 K/uL (1.2-3.4); Lymphocytes % (auto) 29.3 %; Mean Corpuscular Hemoglobin 31.4 pg (25.0-34.0); Mean Corpuscular Hgb Conc 31.9 g/dL (32.0-36.0); Mean Corpuscular Volume 98.6 fL (80.0-100.0); Mean Platelet Volume 11.1 fL (9.4-12.4); Monocytes # (auto) 0.24 K/uL (0.11-0.59); Monocytes % (auto) 5.5 %; Neutrophils # (auto) 2.73 K/uL (1.40-6.50); Neutrophils % (auto) 63.2 %; Platelet Count 102 K/uL (130-400); Potassium 3.6 mmol/L (3.5-5.1); RDW Standard Deviation 46.7 fL (36.4-46.3); Red Blood Count 3.47 M/uL (4.20-5.40); Total Protein 5.9 gm/dl (6.0-8.3); White Blood Count 4.33 K/ul (4.8-10.8)
--- NOTE | 2022-12-30 12:32 | XRay Report ---
KUB CLINICAL HISTORY: Small bowel obstruction. FINDINGS: 2 AP supine abdominal radiographs are compared to study dated 12/29/2022 and correlated with abdominal CT dated 12/27/2022. There is evidence of persistent small bowel obstruction. Distended and gas-filled loops of small bowel measure up to 4.2 cm in diameter. No evidence of intraperitoneal cindy e air is seen on this supine examination. There are no abnormal abdominal calcifications. Suture mate rial projects over the left pelvis. The skeletal structures are osteopenic and appear intact. There i s mild lumbosacral spondylosis. A right hip arthroplasty is in place. IMPRESSION: Persistent small bowel obstruction. Electronically signed by: Pankaj Su M.D. 12/30/2022 12:30 PM
--- NOTE | 2022-12-30 12:35 | Surgery Progress Note ---
Date of Service December 30, 2022 Assessment & Plan (1) SBO (small bowel obstruction): Plan: Resolving KUB showing persistent obstruction however clinically much improved with + bowel function , soft nondistended abdomen and no abdominal pain with tolerance of advancing diet Plan: Okay from surgical standpoint for discharge today on low fiber diet for 2 weeks Will need to follow-up with her colorectal surgeon (Dr. Alexander Parra) for recommendations for her chronic loose stools and recurrent bowel obstructions (Imodium and High fiber diet initially recommended) Our services signing off, please call with questions/concerns. Dr. Fuller has seen and examined pt, agrees with above. Admission and Anticipated Discharge Date Admission Date: December 28, 2022 Subjective feeling good had loose stools this am after breakfast passing gas no abdominal pain, bloating, n,v tolerated full liquids for breakfast urinating without difficulty Review of Systems Constitutional: as per Subjective / HPI Eyes: as per Subjective / HPI Respiratory: as per Subjective / HPI Cardiovascular: as per Subjective / HPI Gastrointestinal: S/p colectomy Genitourinary: as per Subjective / HPI Neurologic: as per Subjective / HPI Psychiatric: as per Subjective / HPI Endocrine: as per Subjective / HPI Hematologic / Lymphatic: as per Subjective / HPI Physical Exam Constitutional: WD/WN, vitals as above no acute distress and not ill appearing Eyes: PERRL, conjunctivae normal, anicteric sclerae Neck: trachea midline, no thyromegaly Respiratory: normal respiratory effort, lungs clear to auscultation Cardiovascular: RRR, no murmur, no edema Gastrointestinal (Abdomen): Inspection/Auscultation: abdomen normal to inspection and + abdominal surgical scar (midline laparotomy scar); abdomen not distended Percussion/Palpation: abdomen soft; abdomen nontender, no guarding and abdomen not rigid Musculoskeletal: no cyanosis or clubbing, extremities motor strength 5/5 Skin: no rashes, warm and dry Neurologic: patellar DTR's 2+ bilat, sensation intact Psychiatric: A+Ox3, euthymic affect Results & Data Vital Signs (Past 12 Hours) Vital Signs Temp Pulse Resp BP Pulse Ox O2 Del Method 12/30/22 07:44 36.9 C 63 16 112/62 99 Room Air Laboratory Results 12/30/22 12/30/22 Range/Units 05:44 05:44 WBC 4.33 L (4.8-10.8) K/ul RBC 3.47 L (4.20-5.40) M/uL Hgb 10.9 L (12.0-16.0) g/dl Hct 34.2 L (37.0-47.0) % MCV 98.6 (80.0-100.0) fL MCH 31.4 (25.0-34.0) pg MCHC 31.9 L (32.0-36.0) g/dL RDW Std Deviation 46.7 H (36.4-46.3) fL RDW Coeff of Lela 13.0 (11.5-14.5) % Plt Count 102 L (130-400) K/uL MPV 11.1 (9.4-12.4) fL Immature Gran % (Auto) 0.0 % Neut % (Auto) 63.2 % Lymph % (Auto) 29.3 % [place] % (Auto) 5.5 % Eos % (Auto) 1.8 % Baso % (Auto) 0.2 % Neut # (Auto) 2.73 (1.40-6.50) K/uL Lymph # (Auto) 1.27 (1.2-3.4) K/uL [place] # (Auto) 0.24 (0.11-0.59) K/uL Eos # (Auto) 0.08 (0-0.50) K/uL Baso # (Auto) 0.01 (0-0.2) K/uL Immature Gran # (Auto) 0.00 L (0.01-0.20) K/uL Sodium 143 (136-145) mmol/L Potassium 3.6 (3.5-5.1) mmol/L Chloride 110 H (98-107) mmol/L Carbon Dioxide 28 (21-32) mmol/L Anion Gap 5 (3-11) BUN 7 (6-23) mg/dl Creatinine 0.95 (0.6-1.2) mg/dl Est Cr Clr Drug Dosing 61.9 ml/min Est GFR ( Amer) 73.9 ml/min Est GFR (Non-Af Amer) 63.7 ml/min BUN/Creatinine Ratio 7.4 L (10-20) Glucose 81 (70-99(Fasting)) mg/dl Calcium 8.8 (8.5-10.1) mg/dl Total Bilirubin 0.5 (0.2-1.0) mg/dl AST 11 L (13-39) U/L ALT 9 (7-52) U/L Alkaline Phosphatase 72 (34-104) U/L Total Protein 5.9 L (6.0-8.3) gm/dl Albumin 3.8 (3.4-5.0) gm/dl Globulin 2.1 L (2.5-4.0) gm/dl Albumin/Globulin Ratio 1.8 (0.9-2) Diagnostic Findings KUB CLINICAL HISTORY: Small bowel obstruction. FINDINGS: 2 AP supine abdominal radiographs are compared to study dated 12/29/2022 and correlated with abdominal CT dated 12/27/2022. There is evidence of persistent small bowel obstruction. Distended and gas-filled loops of small bowel measure up to 4.2 cm in diameter. No evidence of intraperitoneal free air is seen on this supine examination. There are no abnormal abdominal calcifications. Suture material projects over the left pelvis. The skeletal structures are osteopenic and appear intact. There is mild lumbosacral spondylosis. A right hip arthroplasty is in place. IMPRESSION: Persistent small bowel obstruction.
--- NOTE | 2022-12-30 14:10 | Discharge Summary ---
Date of Service December 30, 2022 Admission HPI Per Admitting Provider This is a 62-year-old female with past medical history significant for hyperlipidemia, peripheral vascular disease, history of depression, history of colon polyps, status post laparoscopic colectomy, history of bowel obstruction, presents with abdominal pain. The patient had laparoscopic partial colectomy with coloproctostomy in January 2019 at [facility] then after that in June, she did have small-bowel obstruction 5 months postop that was managed with exploratory laparotomy and lysis of adhesions. The patient since surgery is having some fecal incontinence and and she saw recently colorectal surgeon at [place] and recommended to take Imodium and also fiber supplement, which she was taking.But last Friday, she started to have abdominal discomfort. She stopped taking Imodium. Stools are more solid and yesterday she developed significant abdominal pain and today it got worse. She called Surgery at [place] and they recommended if the pain does not get better, come to the ER. That is the reason she came here. Her pain is getting worse, 10/10 severity in the lower abdomen. Her last bowel movement was in Friday, was small amount and she is passing small amount of gas. Denies any nausea, vomiting. Required Multiple doses pain medications in the ER. Denies any chest pain, no shortness of breath, no cough, no fevers, no headache, no dizziness, no blurred visions, no earache, no runny nose, no sore throat, no difficulty swallowing. She is able to take her pills. No blood in the stools. No hematuria. No burning micturition, no frequent urination. Admission Exam Per Admitting Provider GENERAL: The patient is of moderate build, not in acute distress. VITAL SIGNS: Temperature 36.9, pulse 61, respiratory rate 18, blood pressure 127/57, oxygen 95% on room air. HEENT: Pupils equal, round and reactive to light. Oral mucosa moist. NECK: No JVD, no neck masses. CARDIOVASCULAR: S1 and S2 heard. Regular rate and rhythm. No murmur, no gallop. RESPIRATORY SYSTEM: Normal AP diameter. No accessory muscle use. No wheezing or crackles. ABDOMEN: Soft, bowel sounds sluggish. Diffuse tenderness, more in the left lower quadrant with mild guarding, no rigidity, no distention. CENTRAL NERVOUS SYSTEM: Cranial nerves II through XII grossly intact, nonfocal. EXTREMITIES: No edema, no erythema. Principal Diagnosis Small bowel obstruction Discharge Exam Constitutional: WD/WN, vitals as above, NAD, sitting up in bed, pleasant, conversing easily Respiratory: normal respiratory effort, lungs clear to auscultation, no wheeze, rales, rhonchi. Normal insp/exp effort, no accessory muscle use Cardiovascular: RRR, no murmur, no edema Vessels: no JVD or carotid bruit Chest: normal inspection of chest Abdomen: Soft, nondistended. Tenderness present in lower abdomen. Musculoskeletal: no cyanosis or clubbing, extremities motor strength 5/5 Skin: no rashes, warm and dry normal turgor Neurologic: PERRL, EOMI, accommodation nl, no face palsy, no dysarthria CN's II- XI intact bilaterally and moves all extremities Psychiatric: A+Ox3, euthymic affect Lymphatic: no cervical or axillary lymphadenopathy : deferred Discharge Data Allergies Allergy/AdvReac Type Severity Reaction Status Date / Time morphine AdvReac Intermediate Vomiting Verified 12/27/22 23:01 Consultations 12/28/22 02:16 ED Decision to Admit Stat 12/28/22 08:00 Consult General Surgery Routine Ordered Studies 12/27/22 21:54 CT Abd and Pelvis [CT abd pelvis IV con only] Stat Hospital Course (1) SBO (small bowel obstruction): (2) Acute UTI: Plan Patient is a 62-year-old female with past medical history of laparoscopic partial colectomy with coloproctostomy because of the colon polyps in January 2019 presented to the hospital with abdominal pain and constipation. Her last small bowel obstruction episode was in 2018 for which she required exploratory laparotomy. CT abdomen with IV contrast showed a small bowel obstruction with tr ansition point in low right hemiabdomen.. Patient reports that she was recently prescribed Imodium and recommended to be on high-fiber diet by her GI doctor. Patient was managed conservatively with n.p.o. status, IV fluids and analgesics. Over the course of the hospitalization; patient showed signs of improvement with passage of gas and eventually had bowel movement on 12/29. Patient tolerated darin ar liquid diet; her diet was advanced as tolerated. Patient was discharged home after she was cleared from surgery. She was also treated with IV antibiotic for UTI; was prescribed Augmentin for 3 more days to complete 5-day course. Her home medication were continued as before. Total Time Total Time Spent Total Time Spent (In Minutes): 35 Total Time Includes: Examination of the Patient, Discharge Planning, Medication Reconciliation, Communication With Other Providers and Other Discharge Plan Discharge Items Patient Disposition: Home - Self-Care Reason For Visit: ABDOMINAL PAIN Discharge Diagnosis: Small bowel obstruction. Condition on Discharge: Good Activity: Resume your previous activity Non-emergency contact: Primary Care Provider Call non-emergency contact if: you have any medication questions and your symptoms worsen Follow-up/Referrals: Jerry Asher MD [Primary Care Provider] - (Date & Time 01/03/2023 10:20 AM Provider Jerry Asher III, MD Department [facility] ) Taiwo Munoz MD [Outside Practitioners] - (Date & Time 01/30/2023 3:30 PM Provider [facility] Diet: Low Fiber Addtl Attending Provider Instructions: You were admitted to the hospital with a small bowel obstruction. Please follow low fiber diet for at least 2 weeks. Please eat small and frequent meals. You were also found to have urinary tract infection. You are treated with IV antibiotic during the hospitalization. You are prescribed amoxicillin/clavulanate to be taken twice daily for 3 more days. Please follow-up with her primary care doctor on January 03. Pending Studies at Discharge: No Stand-Alone Forms: My [facility] Animated Speech, Work/School Release, Smoking Cessation Medications and DC Order Prescriptions: New amoxicillin-pot clavulanate 875-125 mg tablet 1 tab PO BID 3 Days Qty: 6 0RF Continued solifenacin 10 mg tablet 10 mg PO HS bupropion HCl 150 mg Tablet Sustained-Release 12 Hr 150 mg PO HS atorvastatin 80 mg Tablet 80 mg PO HS cyanocobalamin (vitamin B-12) [Vitamin B-12] 1,000 mcg Tablet 1,000 mcg PO HS clopidogrel 75 mg Tablet 75 mg PO HS aspirin [Scot Low Dose Aspirin] 81 mg Tablet,Delayed Release (Dr/Ec) 81 mg PO HS acetaminophen [Tylenol Extra Strength] 500 mg Tablet 1,000 mg PO DIRECTED PRN (Reason: Pain) pantoprazole 40 mg tablet,delayed release (DR/EC) 40 mg PO HS Saccharomyces boulardii [Florastor] 250 mg capsule 250 mg PO HS Rx Instructions: PER PT "HAVEN'T HAD FOR A COUPLE OF DAYS". Discharge Orders: Discharge Order (Routine); Ordered 12/30/22 Ordered By: Rodrigo Dunne Admission Data Admit Date/Time: 12/28/22 02:52 Attending Provider: Rodrigo Dunne Admit Provider: Clayton Fowler Primary Care Provider: Jerry Asher Other Providers: Clayton Fowler ; Mikael Cox ; Anderson Barrow ; Yazmin Lockhart ; Heidy Edwards ; Epifanio Cooley ; Hossein Molina ; Marta Yoon ; Ayana Matta ; Moshe Hunter Jr ; Barrie Fuller ; Kris Manriquez ; Estrella Gee
== END 2022-12-30 15:07 | disposition home or self-care (01) | DRG 389 ==
LOC: ED 19:31 → 3W 12-28 02:52

== ENCOUNTER 2024-04-16 09:10 | Observation (INO) ==
--- NOTE | 2024-04-16 09:30 | Emergency Department Note ---
History of Present Illness General Chief complaint: Knee Injury/Pain Stated complaint: RIGHT KNEE PAIN, FLUID Time Seen by Provider: 04/16/24 09:20 History of Present Illness Maximum Pain Intensity: 9 This is a 64-year-old female that presents to the emergency department via private vehicle with complaints of "right knee pain". The patient states that beginning on the of last month she developed right knee pain. No trauma or injury. Patient does note history of right lower leg arterial stent currently on Plavix therapy. She does note that on the of last month she presented to [facility] and saw Dr. Brannon. She noted that a right knee x- ray was performed and the right knee fluid was drained. She then received a cortisone injection. She is awaiting the results of the fluid sampling from the knee. The patient states that she felt a bit better for a few days however over the past 2 days notes significant increase of pain now at 9/10. She notes associated nausea from the severity of pain. She notes trouble sleeping secondary to the pain. She has been taking ibuprofen, acetaminophen and an equate brand arthritis pill that also was found to contain acetaminophen. She denies any chest pain or shortness of breath. No fevers or chills. Home Medications Medication Instructions Recorded Confirmed Type acetaminophen 500 mg tablet 1,000 mg PO DIRECTED PRN Pain 02/21/19 04/16/24 History (Tylenol Extra Strength) aspirin 81 mg tablet,delayed 81 mg PO HS 02/21/19 04/16/24 History release (Scot Low Dose Aspirin) atorvastatin 80 mg tablet 80 mg PO HS 02/21/19 04/16/24 History bupropion HCl 150 mg tablet,12 hr 150 mg PO BID 02/21/19 04/16/24 History sustained-release clopidogrel 75 mg tablet 75 mg PO HS 02/21/19 04/16/24 History cyanocobalamin (vitamin B-12) 1,000 mcg PO HS 02/21/19 04/16/24 History 1,000 mcg tablet (Vitamin B-12) pantoprazole 40 mg tablet,delayed 40 mg PO HS 02/21/19 04/16/24 History release solifenacin 10 mg tablet 10 mg PO HS 06/18/19 04/16/24 History celecoxib 200 mg capsule (Celebrex) 200 mg PO HS 06/21/23 04/16/24 History loratadine 10 mg tablet (Claritin) 10 mg PO HS 06/21/23 04/16/24 History ondansetron HCl 4 mg tablet 4 mg PO Q8H PRN NAUSEA/VOMITING 06/21/23 04/16/24 History Allergies Allergy/AdvReac Type Severity Reaction Status Date / Time morphine AdvReac Intermediate Vomiting Verified 06/22/23 15:16 Past Med/Surg History Problem List (Updated 04/16/24 @ 14:04 by Raul Emanuel PA-C) Effusion of knee joint right (Acute) Knee pain, right (Acute) Transaminitis (Acute) Tylenol ingestion (Acute) Effusion of right knee joint Right knee pain Arm pain, right Acute UTI (Acute) Hemorrhoids Medical History SBO (small bowel obstruction) On clopidogrel therapy Hyperlipidemia GERD (gastroesophageal reflux disease) Surgical History H/O knee surgery H/O: hysterectomy H/O colectomy Family History Other No significant family history Social History Smoking Status: Current every day smoker Tobacco Type: Cigarettes Cigarettes Per Day: 1/2 pack; Do You Dip or Chew Tobacco: No; Hx Alcohol Use: No Hx Substance Use: No Preferred Language: Uzbek Communication Ability: Effective Rf Manager Required: No Beliefs That Will Affect Care: None marital status: Current Living Situation: Alone current occupational status: employed Feels Safe at Home: Yes Assistive Devices: None Review of Systems A total of 10 systems reviewed and were otherwise negative Physical Exam Vital Signs Vital Signs - 24 hr 04/16/24 09:16 04/16/24 10:23 Temperature 36.6 C Temperature Source Temporal Artery Scan Pulse Rate 101 H Pulse Rate [Right Finger] 75 Pulse Rhythm [Right Finger] Regular Pulse Strength [Right Finger] Normal Respiratory Rate 18 20 Respiratory Effort / Characteristics Non-Labored Spontaneous Respiratory Depth Normal Respiratory Pattern Regular Blood Pressure 128/86 Blood Pressure [Left Arm] 120/72 Blood Pressure Mean 100 Blood Pressure Mean [Left Arm] 88 Blood Pressure Position [Left Arm] Sitting Pulse Oximetry 97 97 Oxygen Delivery Method Room Air Room Air Sepsis Recent Fever Within 48 Hours No Sepsis New/Unexplained Change in Mental Status No Sepsis Action Taken by Nursing No Action Required VITAL SIGNS - Vital signs and nursing notes were reviewed. Stable and afebrile. GENERAL -64-year-old female appearing her stated age who is in no acute distress. Communicates well with provider and answers questions appropriately. SKIN -right knee mildly edematous compared to the left. No erythema. Mild increased warmth of the right knee compared to the left. The lower extremities are appropriately perfused. HEAD - NC/AT. EYES - PERRL with EOMI bilaterally. Sclera anicteric. MOUTH/OROPHARYNX - Without perioral cyanosis. NECK - Neck with FROM. No nuchal rigidity. LUNGS - Chest wall symmetric without accessory muscle use, intercostals retractions, or central cyanosis. Normal vesicular breath sounds CTA B/L. No wheezes, rales, or rhonchi appreciated. CARDIAC - RRR with S1/S2. No murmur, rubs, or gallops appreciated. EXTREMITIES - No clubbing or peripheral cyanosis. No pretibial edema present. Skin as above. There is right knee tenderness diffusely. The right knee is mildly warm compared to the left. The right lower extremity is well-perfused noting a within normal limits dorsalis pedis pulse. Cap refill of all toes of the right and left foot within normal limits. +5/5 strength noted in UE/LE bilaterally. NEUROLOGIC -sensory intact throughout the extremities without deficit PSYCH -alert, oriented and pleasant on exam Course Administered Medications Discontinued Medications Hydromorphone HCl (Hydromorphone Inj 0.5 Mg/0.5 Ml Syr) 0.25 mg IV NOW STA Stop: 04/16/24 10:52 Last Admin: 04/16/24 11:38 Dose: 0.25 mg Documented By: Acetylcysteine 11,630 mg/ (Dextrose) 258.15 mls @ 200 mls/hr IV ONCE ONE; Protocol Stop: 04/16/24 13:37 Last Admin: 04/16/24 13:27 Dose: 200 mls/hr Documented By: MARY Ondansetron HCl (Ondansetron Inj 2 Mg/Ml 2 Ml Vial) 4 mg IV NOW STA Stop: 04/16/24 10:52 Last Admin: 04/16/24 11:38 Dose: 4 mg Documented By: Medical Decision Making Laboratory Data 04/16/24 09:42 04/16/24 09:42 Lab Results 04/16/24 04/16/24 Range/Units 09:42 11:05 WBC 8.02 (4.8-10.8) K/ul RBC 3.77 L (4.20-5.40) M/uL Hgb 11.4 L (12.0-16.0) g/dl Hct 36.3 L (37.0-47.0) % MCV 96.3 (80.0-100.0) fL MCH 30.2 (25.0-34.0) pg MCHC 31.4 L (32.0-36.0) g/dL RDW Std Deviation 50.5 H (36.4-46.3) fL RDW Coeff of Lela 14.2 (11.5-14.5) % Plt Count 165 (130-400) K/uL MPV 10.0 (9.4-12.4) fL Immature Gran % (Auto) 0.4 % Neut % (Auto) 78.1 % Lymph % (Auto) 12.8 % [place] % (Auto) 7.4 % Eos % (Auto) 1.1 % Baso % (Auto) 0.2 % Neut # (Auto) 6.26 (1.40-6.50) K/uL Lymph # (Auto) 1.03 L (1.20-3.40) K/uL [place] # (Auto) 0.59 (0.11-0.59) K/uL Eos # (Auto) 0.09 (0.00-0.50) K/uL Baso # (Auto) 0.02 (0.00-0.20) K/uL Immature Gran # (Auto) 0.03 (0.01-0.20) K/uL ESR 40 H (0-30) mm/hr PT 10.9 (9.0-12.0) Seconds INR 1.0 (0.9-1.1) APTT 27 (21-31) Seconds PTT Ratio 1.0 Sodium 137 (136-145) mmol/L Potassium 4.3 (3.5-5.1) mmol/L Chloride 105 (98-107) mmol/L Carbon Dioxide 25 (21-32) mmol/L Anion Gap 7 (3-11) BUN 18 (6-23) mg/dl Creatinine 1.19 (0.6-1.2) mg/dl Est Cr Clr Drug Dosing 49.3 ml/min Est GFR ( Amer) 55.5 ml/min Est GFR (Non-Af Amer) 47.9 ml/min BUN/Creatinine Ratio 15.1 (10-20) Glucose 89 (70-99(Fasting)) mg/dl Calcium 9.0 (8.6-10.3) mg/dl Total Bilirubin 0.6 (0.2-1.0) mg/dl AST 40 H (13-39) U/L ALT 91 H (7-52) U/L Alkaline Phosphatase 141 H (34-104) U/L C-Reactive Protein 2.51 H (0-0.5) mg/dl Total Protein 7.0 (6.0-8.3) gm/dl Albumin 4.3 (3.4-5.0) gm/dl Globulin 2.7 (2.5-4.0) gm/dl Albumin/Globulin Ratio 1.6 (0.9-2) Acetaminophen 12 (10-30) ug/ml Lyme Disease Screen Negative (Negative) Imaging Data Radiologist's Impression: Knee X-Ray 04/16/24 09:29 XR knee RT 3V CLINICAL HISTORY: Right knee . COMPARISON: None FINDINGS: A stent within the distal superficial femoral artery is incidentally noted. A moderate size joint effusion is present without lipohemarthrosis. No fracture is identified. There is mild medial and patellofemoral compartment osteophytosis. Right knee soft tissue swelling is present. IMPRESSION: 1. No fractures within the right knee. 2. Moderate size joint effusion. 3. Mild medial and patellofemoral compartment degenerative changes. ACT 112: Negative or not required by law. Electronically signed by: Lambert Ivory M.D. 04/16/2024 11:18 AM Venous Doppler Study 04/16/24 09:29 US venous doppler LE RT CLINICAL HISTORY: R knee pain TECHNIQUE: Right lower extremity real-time compression venous ultrasound with Color Doppler imaging. Utilizing real-time ultrasonic imaging multiple real time high-resolution ultrasonic images with compression and noncompression maneuvers of the deep venous system in addition to color doppler imaging were performed from the common femoral vein through the proximal calf veins. COMPARISON: None available at the time of this dictation. FINDINGS/IMPRESSION: Currently there is normal compressibility of the deep venous system from the common femoral vein through the proximal calf veins. No superficial venous thrombosis is identified. ACT 112: Negative or not required by law. Electronically signed by: Ashwin Gupta M.D. 04/16/2024 10:20 AM MDM Narrative Patient was seen and evaluated as above in room C01. Review was performed of triage nursing notes and vital signs. I did review the patient's recent results of the right knee arthrocentesis. Negative culture. WBC is around 8000. Lyme negative. Crystals negative. After obtaining a thorough history and physical examination the above work up was performed. Patient presents to us today for evaluation of right knee pain. Patient did have recent arthrocentesis x 1 and now notes worsening pain after a bit of improvement following arthrocentesis and cortisone injection. The patient on examination does have a mildly edematous right knee. Increased warmth noted. Extremity well-perfused and within normal limits dorsalis pedis pulse. Patient does have history of arterial stent on that side currently on Plavix. By exam there is no evidence of arterial compromise. Options of care were discussed with the patient. Ultrasound of the right leg was obtained and there is no DVT. X-ray of the right knee reveals a moderate joint effusion per my interpretation. IV access was established. Labs were drawn. There is no leukocytosis. Minor anemia noted with hemoglobin of 11.4. Coags normal. ESR and CRP are elevated. There is transaminitis with AST at 40, ALT at 91 which appears to be a change compared to previous. I did obtain further history from the patient and it appears that she unfortunately is exceeding the current package recommendations of acetaminophen use per day. Typically she is taking 500 mg tablets, 2 at a time every 4-6 hours for total of 3 doses per day which would be 3000 mg in addition to taking an [id number] equate brand arthritis medicine which was found also contain acetaminophen tablets at 650 mg each, taking 2 of them at a time twice per day and this is 5600 milligrams per day. She has been doing this for the past 2 days. Last dose of the arthritis medicine which is acetaminophen was at 2 AM. Patient does have a bottle of acetaminophen at bedside but not the arthritis medicine. I did utilize our computer to look up the medicine to confirm again the ingredients and indeed the patient was able to point out the medication she was taking and confirmed to have acetaminophen within the medication. At this time in the setting of otherwise unexplained transaminitis plus use of acetaminophen beyond package recommendation accidentally, with a detectable Tylenol level I did discuss this with the Poison Control Center. Specifically I spoke with the Poison Control Center at 12:14 PM. They did recommend the Acetadote. This was ordered. I did work with our ED pharmacist to confirm medication. Patient will require hospitalization for this at this time. Case discussed with hospitalist service for further evaluation and management. Patient may benefit from orthopedic evaluation during her time here in the hospital. The patient denies any alcohol use. Please refer to further documentation regarding her stay. Case discussed with the hospitalist GCS: 15 In the evaluation and treatment of this patient the following differential diagnoses were entertained: Septic knee, Tylenol overdose accidental, gout, Lyme disease, DVT, among others Impression & Plan Knee pain, right, Effusion of knee joint right, Tylenol ingestion, Transaminitis Discharge Plan Visit Data Chief Complaint: Knee Injury/Pain Stated Complaint: RIGHT KNEE PAIN, FLUID ED Provider: Robin Lam ED Midlevel Provider: Raul Emanuel Discharge Problem: Knee pain, right, Effusion of knee joint right, Tylenol ingestion, Transaminitis Patient Disposition: Home - Self-Care Condition: Good Forms Stand Alone Forms: My [facility], Important Visit Information Prescriptions Prescriptions: No Action solifenacin 10 mg tablet 10 mg PO HS bupropion HCl 150 mg Tablet Sustained-Release 12 Hr 150 mg PO BID atorvastatin 80 mg Tablet 80 mg PO HS cyanocobalamin (vitamin B-12) [Vitamin B-12] 1,000 mcg Tablet 1,000 mcg PO HS clopidogrel 75 mg Tablet 75 mg PO HS aspirin [Scot Low Dose Aspirin] 81 mg Tablet,Delayed Release (Dr/Ec) 81 mg PO HS acetaminophen [Tylenol Extra Strength] 500 mg Tablet 1,000 mg PO DIRECTED PRN (Reason: Pain) pantoprazole 40 mg tablet,delayed release (DR/EC) 40 mg PO HS celecoxib [Celebrex] 200 mg Capsule 200 mg PO HS ondansetron HCl 4 mg tablet 4 mg PO Q8H PRN (Reason: NAUSEA/VOMITING) loratadine [Claritin] 10 mg Tablet 10 mg PO HS Referrals Referrals: Jerry Asher MD [Primary Care Provider] -
--- OUTSIDE RECORDS SUMMARY | 2024-04-16 10:14 | External Medical Summary | Summary of Care ---
Author Name Unknown Organization [facility] Address [address] [address] Phone [phone] Care Team Providers Care Equipment Operator Name Role Phone Lb CROSS MD, Ollie Ba Primary Care Provider [phone] Reason for Visit * Reason Comments eRx-Medication Refill Encounter Details Date Type Department Care Team (Late st Contact Info) Description 03/10/2024 Refill Family Practice [facility] [address] [place] [address] Ollie Millard III, MD [address] [facility] [address] Allergies Active Allergy Reactions Criticality Noted Date Comments Peanut-Containing Drug Products Diarrhea 07/13/2020 Can eat peanut butter, can't eat whole nuts documented as of this encounter (statuses as of 04/12/2024) Medications Medication Sig Dispensed Refills Start Date End Date Status ASPIRIN 81 MG PO TABS Take 1 Tablet by mouth at bedtime. Active Atorvastatin Calcium 80 MG Oral Tablet (Lipitor)Indicati ons:PVD (peripheral vascular disease) (HCC) Take 1 Tablet (80 mg) by mouth every evening. 90 Tablet 3 08/28/2022 Active Celecoxib 200 MG Oral Capsule (CeleBREX) Take 1 Capsule (200 mg) by mouth in the morning. 90 Capsule 3 08/28/2022 Active Additional Information Patient taking differently:200 mg OralHS, Informant: Patient, Reported on 08/20/2023 Ondansetron HCl 4 MG Oral Tablet (Zofran) Take 1 Tablet (4 mg) by mouth every 8 hours as needed for Nausea. 15 Tablet 08/28/2022 Active Additional Information Patient not taking.Informant: Patient, Reported on 01/05/2024 traMADol HCl 50 MG Oral Tablet (Ultram) Take 1 Tablet by mouth every 6 hours as needed for severe incisional pain. 20 Tablet 06/20/2023 Active Additional Information Patient not taking.Informant: Patient, Reported on 01/05/2024 Acetaminophen 500 MG Oral Tablet (Tylenol) Take 1-2 Tablets by mouth every 6 hours as needed for Fever >38C(100.5F) or Pain, Moderate. Active Vitamin B-12 1000 MCG Oral Tablet (Cyanocobalamin) Take 1 Tablet by mouth at bedtime. Active Solifenacin Succinate 10 MG Oral Tablet (VESIcare) Take 1 Tablet by mouth at bedtime. 30 Tablet 11 09/25/2023 Active MEDICAL INSTRUCTIONS Stop Plavix a week before procedure. 1 Each 1 02/13/2024 Active Clopidogrel Bisulfate 75 MG Oral Tablet (pLAVix)Indicatio ns:PVD (peripheral vascular disease) (HCC) TAKE 1 TABLET (75 MG) BY MOUTH IN THE MORNING. 90 Tablet 02/26/2024 Active buPROPion HCl ER (SR) 150 MG Oral Tablet Extended Release 12 Hour (Wellbutrin SR) TAKE 1 TABLET (150 MG) BY MOUTH IN THE MORNING AND 1 TABLET (150 MG) BEFORE BEDTIME. 180 Tablet 03/11/2024 Active buPROPion HCl ER (SR) 150 MG Oral Tablet Extended Release 12 Hour (Wellbutrin SR) TAKE 1 TABLET (150 MG) BY MOUTH IN THE MORNING AND 1 TABLET (150 MG) BEFORE BEDTIME. 180 Tablet 2 05/19/2023 03/11/20 24 Discontinued documented as of this encounter (statuses as of 04/12/2024) Active Problems Problem Noted Date Diagnosed Date H/O ileostomy 06/27/2023 Chronic diarrhea 06/18/2023 Small bowel obstruction 06/25/2019 History of colonic polyps 01/28/2019 Status post laparoscopic colectomy 01/28/2019 Smoker 03/17/2017 PVD (peripheral vascular disease) 11/02/2013 Other B-complex deficiencies 03/16/2009 Dyslipidemia, goal to be determined 09/15/2008 ADVANCE DIRECTIVE INFORMATION 07/21/2007 Overview: No, Advance Directive brochure given to patient at prior appointment. ADJ DISORDER W/DEPRES MOOD 01/27/2006 documented as of this encounter (statuses as of 04/12/2024) Resolved Problems Problem Noted Date Diagnosed Date Resolved Date Unspecified atrial fibrillation 06/30/2019 10/26/2020 Kidney disease, chronic, sta ge III (GFR 30-59 ml/min) 06/21/2019 08/25/2019 Overview: Per CKD protocol Abdominal pain 02/21/2019 07/07/2019 Tobacco abuse 05/24/2015 01/23/2016 Ischemic rest pain of lower extremity 11/02/2013 04/06/2014 Ulcer of right heel 11/02/2013 04/06/20 14 NO KNOWN PROBLEMS 11/25/2002 07/07/2019 FEM STRESS INCONTINENCE 08/19/200211/13 documented as of this encounter (statuses as of 04/12/2024) Immunizations Name Administration Dates Next Due Pneumococcal Conjugate Vacci ne, 20-valent ([id number]) 01/03/2023 Pneumococcal Polysaccharide PPV23 (Pneumovax) 09/13/2015 Seasonal Influenza, PF, 6 M & above, IM , (FluLaval or Fluzone) 08/28/2022,07/17/2020,08/25/2019,08/20 Seasonal Influenza, Quadriva lent, No Preserve, IM 08/15/2016,09/13/2015 Seasonal Influenza, Split, I IV3, With Preserve, Inj 09/07/2014,07/05/2013,08/30/2011 TD, Preservative Free 08/20/2018 TDAP, Age 7 and older, IM (Adacel) 08/22/2008 Zoster Vaccine Recombinant (Shingrix) 02/25/2020 ,08/30/2019 documented as of this encounter Social History Tobacco Use Types Packs/Day Years Used Date Smoking Tobacco: Former Cigarettes 0.5 45 0 06/16/1978 - 06/16/2023 Smokeless Tobacco: Former Quit: 11/11/2020 Comments:Currently smoking 6 cigarettes/day was smoking < 1 pack/day - Started smoking age - 14 Alcohol Use Standard Drinks/Week Comments Not Currently 0 (1 standard drink = 0.6 oz pur e alcohol) Personal Safety Answer Date Recorded Do you feel unsafe or have concerns for your saf ety? No 06/22/2023 Do you have concerns for you r family's safety? (Household - for ages 0-17 years) Not on file 06/22/2023 Utilities Answer Date Recorded Do you have trouble paying y our heating, water, or electric bill? No 06/22/2023 Is your family able to pay t he heat, water, or electric bill? (Household - for ages 0-17 years) Not on file 06/22/2023 Does your family have access to good internet? (Household - for ages 0-17 years) Not on file 06/22/2023 Social Connections Answer Date Recorded How often do you feel lonely or isolated from those around you? (Adult - for ages 18 years and over) Not on file 03/30/2024 Transportation Needs Answer Date Record ed READ ONLY Do you have troubl e getting a ride to medical visits or work? Never True 06/22/2023 Does your family have a hard time getting a ride to doctors visits? (Household - for ages 0-17 years) Not on file 06/22/2023 Has lack of transportation k ept you from medical appointments, meetings, work, or from getting things needed for daily living? Check all that apply. (Adult - for ages 18 years and over) Not on file 06/22/2023 Do you (or your family) have trouble finding or paying for a ride (transportation)? (Household - for ages 0-17 years) Not on file 06/22/2023 Housing Stability Answer Date Recorded Do you currently live in a s helter or have no steady place to sleep at night? (Adult - for ages 18 years and over) Not on file 06/22/2023 READ ONLY Do you think you a re at risk of becoming homeless? No 06/22/2023 Does your family worry about paying for your home or becoming homeless? (Household - for ages 0-17 years) Not on file 0 06/22/2023 Are you homeless or worried that you might be in the future? (Adult - for ages 18 years and over) Not on file Are you (or your family) sanju eless or worried that you might be in the future? (Household - for ages 0-17 years) Not on file Food Insecurity Answer Date Recorded Do you need food for this week? No 06/22/2023 Are you able to get enough f ood for your family? (Household - for ages 0-17 years) Not on file 06/22/2023 Does your family need food t his week? (Household - for ages 0-17 years) Not on file 06/22/2023 Do you always have enough fo od for your family? (Household - for ages 0-17 years) Not on file 06/22/2023 Sex and Gender Information Value Date Recorded Sex Assigned at Female 02/15/2019 10:49 AM EDT Gender Identity Female 02/15/2019 10:49 AM EDT Sexual Orientation Straight 02/15/2019 10 :49 AM EDT Job Start Date Occupation Industry Not on file Not on file Not on file documented as of this encounter Functional Status Functional Status Response Date of Assess ment Are you deaf or do you have serious difficulty h earing? No 06/22/2023 Are you blind or do you have serious difficulty seeing, even when wearing glasses? No 06/22/2023 Do you have serious difficul ty walking or climbing stairs? (5 years old or older) No 08/21/2023 Do you have difficulty dress ing or bathing? (5 years old or older) No 06/22/2023 Because of a physical, menta l, or emotional condition, do you have difficulty doing errands alone such as visiting a doctor s office or shopping? (15 years old or older) No 06/22/20 Cognitive Status Response Date of Assessm ent Because of a physical, menta l, or emotional condition, do you have serious difficulty concentrating, remembering, or making decisions? (5 years old or older) No 06/22/2023 documented as of this encounter Miscellaneous Notes * Telephone Encounter - Jose David Carrillo - 04/12/2024 10:51 AM EDT Received message from [facility] regarding patient needing an appointment. Patient was notified. Successfully contacted patient and provided [facility] message. * Telephone Encounter - May Troncoso [facility] - 03/11/2024 12:05 PM EDT Signed Prescriptions: Disp Refills buPROPion HCl ER (SR) 150 MG Oral Tablet E*180 Ta*0 Sig: TAKE 1 TABLET (150 MG) BY MOUTH IN THE MORNING AND 1 TABLET (150 MG) BEFORE BEDTIME. Authorizing Provider: OLLIE MILLARD III Ordering User: MAY TRONCOSO * Telephone Encounter - May Troncoso [facility] - 03/11/2024 12:04 PM EDT Please contact patient so that an appointment can be scheduled with her PRIMARY CARE provider. Refill authorized to hold patient over in the mean time. Last Visit: 01/03/2023 (in office), Visit date not found (telemedicine) Next Visit: Visit date not found May Bundy, PharmD Clinical Pharmacist [facility] telepharmacy) [phone] 03/11/2024, 12:04 PM documented in this encounter Plan of Treatment Upcoming Encounters Date Type Department Care Team (Late st Contact Info) Description 08/04/2024 5:20 PM EDT Office Visit Family Practice [facility] [place] [address] [place], [place] [address] Ollie Millard III, MD [address] [facility] [place] [address] Scheduled Procedures Name Priority Associated Diagnoses Date/Ti me COLONOSCOPY FLEXIBLE PROXIMA L DIAGNOSTIC Recall History of colonic polyps Health Maintenance Due Date Last Done Comments Cologuard 2004 Fecal Occult Blood Test 2004 Sigmoidoscopy 2004 Lung Cancer Screening 2009 Depression Screening 01/28/2018 01/28/2017 COVID-19 Vaccine ( season) 2023 DXA Scan 2024 Influenza Vaccine (FLU shot) (#1) 2024 08/28/2022, 07/17/2020, 08/25/2019, Additional history exists Mammogram 12/15/2024 12/16/2023, 12/2022, 12/12/2021, Additional history exists Colonoscopy 01/12/2026 01/13/2024, 11/2021, 09/13/2022, Additional history exists Colorectal Cancer Screening 01/12/2026 Lipid Panel 07/27/2027 07/27/2022, 06/2021, 08/21/2019, Additional history exists DTaP,Tdap,and Td Vaccines (3 - Td or Tdap) 08/20/2028 08/20/2018, 08/22/2008 Zoster Vaccines Completed 02/25/2020, 08/30/2019 Pneumococcal Vaccine: 65+ Years Completed 01/03/2023, 09/13/2015 RETIRED - COLONOSCOPY-ANNUAL AGES 18-100 Discontinued 01/13/2024, 09/13/2022, 09/13/2022, Additional history exists RETIRED - COLONOSCOPY-EVERY 2 YRS AGES 18-100 Discontinued 01/13/2024, 09/13/2022, 09/13/2022, Additional history exists GARDASIL-HPV IMMUNIZATION SERIES Aged Out No longer eligible based on patient's age to complete this topic Hepatitis B Aged Out No longer eligi ble based on patient's age to complete this topic MENINGOCOCCAL (MENACTRA/MENVEO) Aged Out No longer eligible based on patient's age to complete this topic documented as of this encounter Medical Devices Implanted Type Area Assembler Arranger Device Identifier Shelf Expiration Date Model / Serial / Lot Stent Smart Flex 6x80mm - [id number] Implanted:Qty : 1 on 11/02/2013 at OR [facility] Right: Popliteal Artery JNJ : [employer] 07/26/2015 [id number] / / [id number] Lens 35.0 Sn60at - [id number] Implanted:Qty : 1 on 09/14/2014 by Dylan Pruett MD at OR [facility] Right: Eye MALENA : SURGICAL 06/12/2019 SN60AT.3 50 / [id number] / Lens 31.0 Sn60at - [id number] Implanted:Qty : 1 on 09/30/2014 by Dylan Pruett MD at OR [facility] Left: Eye MALENA : SURGICAL 05/12/2019 SN60AT.3 10 / / [id number] Clip Quick 2.8mm 230cm - [id number] Implanted:Qty : 3 on 07/24/2020 by Abdullahi Tse MD at ENDOSCOPY [facility] [employer] 09/11/2022 [id number] / / documented as of this encounter Advance Directives * Full Code (Latest Code Status on File) Date Activated Date Inactivated Comments 08/20/2023 10:34 AM 08/22/2023 7:26 PM Question Answer Comments Discussion of Advance Direct todd occurred with: Not Discussed due to patient's condition * Full Code Date Activated Date Inactivated Comments 06/22/2023 10:59 PM 06/25/2023 5:56 PM This order reflects the patients wishes and were consensually agreed upon. Question Answer Comments Discussion of Advance Directives occurred with: Patient * Full Code Date Activated Date Inactivated Comments 06/17/2023 5:31 PM 06/20/2023 7:12 PM This order ref lects the patients wishes and were consensually agreed upon. Question Answer Comments Discussion of Advance Directives occurred with: Patient * Full Code Date Activated Date Inactivated Comments 06/21/2019 10:07 AM 06/24/2019 8:15 PM This order r eflects the patients wishes and were consensually agreed upon. Question Answer Comments Discussion of Advance Directives occurred with: Not Discussed * Full Code Date Activated Date Inactivated Comments 06/19/2019 3:06 AM 06/21/2019 10:07 AM Question Answer Comments Discussion of Advance Directives occurred with: Not Discussed Healthcare Agents on File Name Relationship Healthcare Agent Relationship Communication Susie Xander (Dtr-in-law) Other - (no specific identity) Health Care Agent (per Health Care Power of Mobile Marketing Manager document) Care Teams Equipment Operator Relationship Specialty Start Date End Date Ollie Millard III, MD [address] [place] [address] PCP - General 05/27/1996 documented as of this encounter
--- NOTE | 2024-04-16 10:21 | Ultrasound Report ---
US venous doppler LE RT CLINICAL HISTORY: R knee pain TECHNIQUE: Right lower extremity real-time compression venous ultrasound with Color Doppler imaging. Utilizing real-time ultrasonic imaging multiple real time high-resolution ultrasonic images with comp ression and noncompression maneuvers of the deep venous system in addition to color doppler imaging w ere performed from the common femoral vein through the proximal calf veins. COMPARISON: None available at the time of this dictation. FINDINGS/IMPRESSION: Currently there is normal compressibility of the deep venous system from the common femoral vein thro ugh the proximal calf veins. No superficial venous thrombosis is identified. ACT 112: Negative or not required by law. Electronically signed by: Ashwin Gupta M.D. 04/16/2024 10:20 AM
[2024-04-16 10:38] LABS: Albumin Globulin Ratio 1.6 (0.9-2); Albumin Level 4.3 gm/dl (3.4-5.0); BUN Creatinine Ratio 15.1 (10-20); Bilirubin,Total 0.6 mg/dl (0.2-1.0); C Reactive Protein 2.51 mg/dl (0-0.5); Creatinine Clr Calc Pharmacy 49.3 ml/min; Est GFR (African American) 55.5 ml/min; Est GFR (Non-African American) 47.9 ml/min; Globulin 2.7 gm/dl (2.5-4.0); Potassium 4.3 mmol/L (3.5-5.1)
[2024-04-16 10:53] LABS: Basophils # (auto) 0.02 K/uL (0.00-0.20); Basophils % (auto) 0.2 %; Eosinophils # (auto) 0.09 K/uL (0.00-0.50); Eosinophils % (auto) 1.1 %; Hematocrit (blood only) 36.3 % (37.0-47.0); Hemoglobin 11.4 g/dl (12.0-16.0); Immature Granulocytes # (auto) 0.03 K/uL (0.01-0.20); Immature Granulocytes % (auto) 0.4 %; Lymphocytes # (auto) 1.03 K/uL (1.20-3.40); Lymphocytes % (auto) 12.8 %; Mean Corpuscular Hemoglobin 30.2 pg (25.0-34.0); Mean Corpuscular Hgb Conc 31.4 g/dL (32.0-36.0); Mean Corpuscular Volume 96.3 fL (80.0-100.0); Monocytes # (auto) 0.59 K/uL (0.11-0.59); Monocytes % (auto) 7.4 %; Neutrophils # (auto) 6.26 K/uL (1.40-6.50); Neutrophils % (auto) 78.1 %; Platelet Count 165 K/uL (130-400); RDW Coefficient of Variation 14.2 % (11.5-14.5); RDW Standard Deviation 50.5 fL (36.4-46.3); Red Blood Count 3.77 M/uL (4.20-5.40); White Blood Count 8.02 K/ul (4.8-10.8)
--- NOTE | 2024-04-16 11:20 | XRay Report ---
XR knee RT 3V CLINICAL HISTORY: Right knee . COMPARISON: None FINDINGS: A stent within the distal superficial femoral artery is incidentally noted. A moderate siz e joint effusion is present without lipohemarthrosis. No fracture is identified. There is mild medial and patellofemoral compartment osteophytosis. Right knee soft tissue swelling is present. IMPRESSION: 1. No fractures within the right knee. 2. Moderate size joint effusion. 3. Mild medial and patellofemoral compartment degenerative changes. ACT 112: Negative or not required by law. Electronically signed by: Lambert Ivory M.D. 04/16/2024 11:18 AM
[2024-04-16] MEDS: ONDANSETRON INJ 2 MG/ML 2 ML VIAL IV STA (11:38)
[2024-04-16] MEDS: HYDROmorphone INJ 0.5 MG/0.5 ML SYR IV STA (11:38)
[2024-04-16 11:59] LABS: Partial Thromboplastin Time 27 Seconds (21-31); Prothrombin Time 10.9 Seconds (9.0-12.0)
--- NOTE | 2024-04-16 12:59 | Emergency Department Note ---
ED Visit Note I was consulted by the Advanced Practice Provider. I personally made/approved the management plan and take responsibility for the patient management. I performed a substantive portion of the visit. This includes the aspects of: This patient did have ongoing knee pain. Unfortunately it appears that she has been taking too much acetaminophen/Tylenol I talked her at length she says she has been taking two 500 mg pills every 4-6 hours she estimates she did this about 3 times a day for total of 3000 g additionally she has been taking long-acting Tylenol 650 mg x 2 at a time x 2 or 3 a day. This puts her total Tylenol dosage well over 5000 g for the last 2 days. Additionally her liver functions are mildly elevated and she has nausea. We did discuss the case with the poison center they do recommend admitting her for N-acetylcysteine and this been ordered as per protocol. On my exam she has a benign abdomen. While she is in the hospital they can also look at her knee potentially as well. But the main issue for hospitalization at this point would be acetaminophen overdose/antidote. .
--- NOTE | 2024-04-16 13:07 | History & Physical Report ---
Date of Service April 16, 2024 Assessment & Plan (1) Right knee pain: (2) Effusion of right knee joint: (3) Tylenol ingestion: (4) Transaminitis: Plan Bethany Terrell is a 64 y/o F with PMHx of dyslipidemia, peripheral vascular disease, history of small bowel obstruction, history of colonic polyps and other problems listed below who presented to the ED today for evaluation of right knee pain and was found to have a moderate size joint effusion on x-ray of her right knee. She was seen by Dr. Brannon at [facility] [place] [place] Imaging of the right knee at that time revealed no evidence of fracture, but did show moderate suprapatellar effusion. That effusion was subsequently aspirated and she received corticosteroid injections in her right knee. Previous joint aspiration showing the following: negative culture, WBC ~8K, crystals negative. Right Knee Pain Effusion of Right Knee Joint Admitting Imaging: * R Knee XR --> "No fractures within the right knee. Moderate-sized joint effusion. Mild medial and patellofemoral compartment degenerative changes." * US Venous Doppler RLE --> "Normal compressibility of the deep venous system from the common femoral vein through the proximal calf veins; no superficial venous thrombosis is identified." Pt received IV Dilaudid, Zofran in ED - will continue w/ PRN pain control & anti-nausea regimens. Lyme disease screen negative; WBC count WNL, no acute electrolyte abnormalities. CRP elevated at 2.51 & ESR elevated at 40 on admission; no leukocytosis. Orthopedics consulted, appreciate their recommendations/input moving forward. Tylenol Ingestion Acute Transaminitis Pt has been taking ibuprofen, acetaminophen and an Equate-brand arthritis medication. Pt unaware that the arthritis medication also contained acetaminophen as well. Per Dr. Lam's documentation: Pt has been taking "two 500 mg pills every 4-6 hours she estimates she did this about 3 times a day for total of 3000 g additionally she has been taking long-acting Tylenol 650 mg x 2 at a time x 2 or 3 a day. This puts her total Tylenol dosage well over 5000 g for the last 2 days ." PT/INR WNL at time of admission; AST 40, ALT 91 and Alk Phos 141. Poison control consulted by ED --> Recommend admitting patient for N- acetylcysteine, which was ordered per protocol. Repeat LFTs and acetaminophen level required PRIOR TO patient beginning last bag/dose of N-acetylcysteine (communication order in place). HOLD hepatotoxic medications when able H/O Peripheral Vascular Disease: Will continue [employer] ASA and Plavix for now pending orthopedic evaluation. Osteoarthritis: Will continue [employer] celecoxib for now. Other Chronic Medical Conditions: Dyslipidemia, GERD, urinary incontinence, seasonal allergies, tobacco use disorder --> Can continue all [employer] medications designated for these conditions. DVT Prophylaxis: SCDs - Pt on ASA & Plavix [employer]; will continue for now. Code Status: FULL CODE PCP: Jerry Asher MD Dispo: Admit to PCU/Telemetry Patient seen in collaboration with Dr. Francis. Please see addendum. I spent a total of 70 minutes coordinating, documenting, and providing care for this patient excluding time spent in the performance of separately billed services. This included personally reviewing all current laboratories and imaging studies, medical reconciliation, outpatient chart review and discussion with specialists. This chart was completed in part utilizing Speech Voice Recognition Software. Grammatical errors, random word insertions, pronoun errors, and incomplete sentences are an occasional consequence of this system due to software limitations, ambient noise, and hardware issues. Any formal questions or concerns about the content, text, or information contained within the body of this dictation should be directly addressed to the provider for clarification. History of Present Illness Chief Complaint: R Knee Pain Primary Care Provider: Jerry Asher MD Bethany Terrell is a 64 y/o F with PMHx of dyslipidemia, peripheral vascular disease, history of small bowel obstruction, history of colonic polyps and other problems listed below who presented to the ED today for evaluation of right knee pain. History obtained from the patient and associated chart review. Patient c/o ongoing right knee pain since last month. She was seen by Dr. Brannon at [facility] [place] [place]. Imaging of the right knee at that time revealed no evidence of fracture, but did show moderate suprapatellar effusion. That effusion was subsequently aspirated and she received corticosteroid injections in her right knee. Patient states that she has been unable to appropriately move her right knee for the past 2 days. She describes excruciating right knee pain that radiates up and down her right leg. Patient has been taking ibuprofen, acetaminophen and an [id number] arthritis medication (that also contains acetaminophen). Appears that the patient has been taking an excessive dose of acetaminophen, >5,000mg, without even being aware of doing so. She denies any recent fevers, body aches or chills. No recent trauma to her right knee. Also denies any abdominal pain, bowel or urinary habit changes. She cannot get this right knee pain under control. Patient was unable to schedule an appointment with [facility] today; next available appointment was on Friday (04/19). Allergies Allergy/AdvReac Type Severity Reaction Status Date / Time morphine AdvReac Intermediate Vomiting Verified 06/22/23 15:16 Home Medications Medication Instructions Recorded Confirmed Type acetaminophen 500 mg tablet 1,000 mg PO DIRECTED PRN Pain 02/21/19 04/16/24 History (Tylenol Extra Strength) aspirin 81 mg tablet,delayed 81 mg PO HS 02/21/19 04/16/24 History release (Scot Low Dose Aspirin) atorvastatin 80 mg tablet 80 mg PO HS 02/21/19 04/16/24 History bupropion HCl 150 mg tablet,12 hr 150 mg PO BID 02/21/19 04/16/24 History sustained-release clopidogrel 75 mg tablet 75 mg PO HS 02/21/19 04/16/24 History cyanocobalamin (vitamin B-12) 1,000 mcg PO HS 02/21/19 04/16/24 History 1,000 mcg tablet (Vitamin B-12) pantoprazole 40 mg tablet,delayed 40 mg PO HS 02/21/19 04/16/24 History release solifenacin 10 mg tablet 10 mg PO HS 06/18/19 04/16/24 History celecoxib 200 mg capsule (Celebrex) 200 mg PO HS 06/21/23 04/16/24 History loratadine 10 mg tablet (Claritin) 10 mg PO HS 06/21/23 04/16/24 History ondansetron HCl 4 mg tablet 4 mg PO Q8H PRN NAUSEA/VOMITING 06/21/23 04/16/24 History Past Med/Surg History Problem List (Updated 04/16/24 @ 14:04 by Raul Emanuel PA-C) Effusion of knee joint right (Acute) Knee pain, right (Acute) Transaminitis (Acute) Tylenol ingestion (Acute) Effusion of right knee joint Right knee pain Arm pain, right Acute UTI (Acute) Hemorrhoids Medical History SBO (small bowel obstruction) On clopidogrel therapy Hyperlipidemia GERD (gastroesophageal reflux disease) Surgical History H/O knee surgery H/O: hysterectomy H/O colectomy Family History Other No significant family history Social History Smoking Status: Current every day smoker Tobacco Type: Cigarettes Cigarettes Per Day: 1/2 pack; Do You Dip or Chew Tobacco: No; Hx Alcohol Use: No Hx Substance Use: No Preferred Language: Yemeni Communication Ability: Effective Sewing Pattern Layout Technician Required: No Beliefs That Will Affect Care: None marital status: Current Living Situation: Alone current occupational status: employed Feels Safe at Home: Yes Assistive Devices: None Review of Systems Review of Systems: At least ten systems reviewed and negative, except as noted in the HPI. Physical Exam Physical Exam: General: WD/WN, vitals as above, NAD, sitting up in bed, pleasant, conversing appropriately. A+Ox3, euthymic affect. HEENT: Normocephalic, atraumatic. Normal inspection, conjunctivae normal, anicteric sclerae. External ear and nose normal, oropharynx normal. Respiratory: Normal respiratory effort, lungs clear to auscultation, no wheeze, rales, rhonchi. No accessory muscle use. Cardiovascular: Regular rate, rhythm, no murmur, normal peripheral pulses, no BLE edema. Vessels: No JVD. Abdomen/GI: Normal bowel sounds, soft, nontender, no hepatosplenomegaly. Extremities/Musculoskeletal: Mild right knee swelling and tenderness to palpation, pain with movement of right leg. Neurologic: PERRL, EOMI, accommodation nl, no face palsy, no dysarthria, CN's II-XI not formally tested but appear grossly intact bilaterally. Skin: No rashes, normal color, warm/dry. No overlying erythema of right knee, right knee mildly warm to touch. Results & Data Results & Data Vital Signs (Past 12 Hours) Vital Signs Temp Pulse Pulse Resp BP BP Pulse Ox 04/16/24 10:23 75 20 120/72 97 04/16/24 09:16 36.6 C 101 H 18 128/86 97 O2 Del Method 04/16/24 10:23 Room Air 04/16/24 09:16 Room Air Laboratory Results Short CBC 04/16/24 Range/Units 09:42 WBC 8.02 (4.8-10.8) K/ul Hgb 11.4 L (12.0-16.0) g/dl Hct 36.3 L (37.0-47.0) % Plt Count 165 (130-400) K/uL BMP 04/16/24 09:42 Sodium 137 Potassium 4.3 Chloride 105 Carbon Dioxide 25 BUN 18 Creatinine 1.19 Glucose 89 Calcium 9.0 Liver Function 04/16/24 Range/Units 09:42 Total Bilirubin 0.6 (0.2-1.0) mg/dl AST 40 H (13-39) U/L ALT 91 H (7-52) U/L Alkaline Phosphatase 141 H (34-104) U/L Albumin 4.3 (3.4-5.0) gm/dl Diagnostic Findings Knee X-Ray 04/16/24 09:29 XR knee RT 3V CLINICAL HISTORY: Right knee . COMPARISON: None FINDINGS: A stent within the distal superficial femoral artery is incidentally noted. A moderate size joint effusion is present without lipohemarthrosis. No fracture is identified. There is mild medial and patellofemoral compartment osteophytosis. Right knee soft tissue swelling is present. IMPRESSION: 1. No fractures within the right knee. 2. Moderate size joint effusion. 3. Mild medial and patellofemoral compartment degenerative changes. ACT 112: Negative or not required by law. Electronically signed by: Lambert Ivory M.D. 04/16/2024 11:18 AM Venous Doppler Study 04/16/24 09:29 US venous doppler LE RT CLINICAL HISTORY: R knee pain TECHNIQUE: Right lower extremity real-time compression venous ultrasound with Color Doppler imaging. Utilizing real-time ultrasonic imaging multiple real time high-resolution ultrasonic images with compression and noncompression maneuvers of the deep venous system in addition to color doppler imaging were performed from the common femoral vein through the proximal calf veins. COMPARISON: None available at the time of this dictation. FINDINGS/IMPRESSION: Currently there is normal compressibility of the deep venous system from the c ommon femoral vein through the proximal calf veins. No superficial venous thrombosis is identified. ACT 112: Negative or not required by law. Electronically signed by: Ashwin Gupta M.D. 04/16/2024 10:20 AM Medications Administered Discontinued Medications Hydromorphone HCl (Hydromorphone Inj 0.5 Mg/0.5 Ml Syr) 0.25 mg IV NOW STA Stop: 04/16/24 10:52 Last Admin: 04/16/24 11:38 Dose: 0.25 mg Documented By: Ondansetron HCl (Ondansetron Inj 2 Mg/Ml 2 Ml Vial) 4 mg IV NOW STA Stop: 04/16/24 10:52 Last Admin: 04/16/24 11:38 Dose: 4 mg Documented By: Code Status & VTE Plan Code Status FULL CODE VTE Prophylaxis Plan VTE Prophylaxis will be ordered: Yes Supervising Physician Co-Signing Physician Notes Attending addendum: The patient was seen and examined in emergency room in presence of the boyfriend She has been complaining of more pain and swelling in the right knee for the last 2 days She is a status post right knee aspiration and cortisone injection on 04/07/2024 Denies any numbness and or tingling in the right leg or toes, no fever and no chills, no nausea or vomiting Apparently she has been taking too much Tylenol daily for the last 3 to 4 days On examination Lying in bed without any acute distress Hemodynamically stable Chest-clear to auscultate bilaterally Heart-S1-S2, regular Abdomen-benign Local examination of the right knee-minimal swelling specially around the patella, minimal fluid on clinical examination, movement is moderately painful. No redness and or increase in warmth in the right knee joint Her admission labs, medications and imaging studies reviewed Worsening right knee pain with swelling status post hydrocortisone injection on of last month Will continue with the pain medications and Ortho evaluation Has been taking more than recommended doses of Tylenol for the last 2 or 3 days with slightly abnormal LFTs Will start acetylcysteine as per the poison control recommendation Agree and take full responsibility of the assessment and plan as outlined above by Tara M. Dunkelberger PA-C Dr M Penny (1) Right knee pain Chronicity: unspecified Qualified Code(s): M25.561 - Pain in right knee (3) Tylenol ingestion Encounter type: initial encounter Injury intent: accidental or unintentional Qualified Code(s): T39.1X1A - Poisoning by 4-Aminophenol derivatives, accidental (unintentional), initial encounter
[2024-04-16] MEDS: DEXTROSE 5% IV ONE ×2 (13:27→15:12)
[2024-04-16] MEDS: ACETYLCYSTEINE IV ONE ×2 (13:27→15:12)
[2024-04-16] MEDS: AcetylCYSTEINE IV 21 HR REGIMEN (>40KG) IV STA (14:29)
[2024-04-16] MEDS: STAT IV/IM STA (14:30)
--- NOTE | 2024-04-16 17:06 | Orthopedic Consultation ---
Date of Consultation April 16, 2024 Assessment & Plan (1) Effusion of knee joint right: Her white blood cell count is normal. Sed rate and CRP are elevated. X-ray shows an effusion and a stent but otherwise negative. No significant arthritis and no fracture. Differential diagnosis would include postinjection synovitis, gout or pseudogout, internal derangement such as a torn lateral meniscus or possibly an infection related to her previous injection. Recommend holding antibiotics for now. No chemoprophylaxis. N.p.o. after midnight. Knee will be aspirated and sent for analysis. Cell count with differential crystal analysis and aerobic and anaerobic culture. Discussed possibilities with the patient and will intervene as necessary based upon this evidence. Crutches or walker as well as a knee immobilizer and ice. Will communicate with primary care team regarding pain medication. We can see if oral medications like oxycodone would be okay given her issues with Tylenol. Also an anti-inflammatory could be pretty helpful. Ysabel did the aspiration and will dictate that separately. History of Present Illness Attending Physician: López Francis MD History of Present Illness Bethany is 64. Approximately April 01 she started to develop pain in her right knee. There is no history of injury or prior knee problems although she thinks that sometime in the rope broke remote past she may have had a right knee injection. She saw Dr. Brannon who aspirated her knee and gave her cortisone shot. He sent the fluid off for analysis. The fluid showed 8000 white blood cells no crystals and no Lyme. She felt almost immediately better and did well until 2 days ago. At that time she experienced the spontaneous increase of her right knee pain. Her pain is located on the posterior lateral aspect of her knee. She is never free of pain and her pain ranges from a 4 to a 10 out of 10. The pain does not radiate up or down her leg and she does not have any tingling numbness or paresthesias. She has not had any recent illness UTI or dental problems. She does have a replaced right total hip. She denies fever chills sweats. Allergies Allergy/AdvReac Type Severity Reaction Status Date / Time morphine AdvReac Intermediate Vomiting Verified 06/22/23 15:16 Home Medications Medication Instructions Recorded Confirmed Type acetaminophen 500 mg tablet 1,000 mg PO DIRECTED PRN Pain 02/21/19 04/16/24 History (Tylenol Extra Strength) aspirin 81 mg tablet,delayed 81 mg PO HS 02/21/19 04/16/24 History release (Scot Low Dose Aspirin) atorvastatin 80 mg tablet 80 mg PO HS 02/21/19 04/16/24 History bupropion HCl 150 mg tablet,12 hr 150 mg PO BID 02/21/19 04/16/24 History sustained-release clopidogrel 75 mg tablet 75 mg PO HS 02/21/19 04/16/24 History cyanocobalamin (vitamin B-12) 1,000 mcg PO HS 02/21/19 04/16/24 History 1,000 mcg tablet (Vitamin B-12) pantoprazole 40 mg tablet,delayed 40 mg PO HS 02/21/19 04/16/24 History release solifenacin 10 mg tablet 10 mg PO HS 06/18/19 04/16/24 History celecoxib 200 mg capsule (Celebrex) 200 mg PO HS 06/21/23 04/16/24 History loratadine 10 mg tablet (Claritin) 10 mg PO HS 06/21/23 04/16/24 History ondansetron HCl 4 mg tablet 4 mg PO Q8H PRN NAUSEA/VOMITING 06/21/23 04/16/24 History Patient History Medical History SBO (small bowel obstruction) On clopidogrel therapy Hyperlipidemia GERD (gastroesophageal reflux disease) Surgical History H/O knee surgery H/O: hysterectomy H/O colectomy Family History Other No significant family history Social History Smoking Status: Former smoker Tobacco Type: Cigarettes Cigarettes Per Day: 1/2 pack; Do You Dip or Chew Tobacco: No; Hx Alcohol Use: No Hx Substance Use: No Preferred Language: Tristanian Communication Ability: Effective Sliver Handler Required: No Beliefs That Will Affect Care: None marital status: Current Living Situation: Alone current occupational status: employed Other Information That Helps Us Care for You: No Feels Safe at Home: Yes Safety Concerns: Feels Safe At This Time Assistive Devices: None Review of Systems Review of Systems: No fever chills sweats. She is a former smoker. She had a right popliteal stent placed many years ago. She has yearly circulation checkups. The last one was in September and reports that everything was okay. Physical Exam Physical Exam: She is able to arise independently and ambulate with a mild limp. On physical examination her DP pulse is 1+ bilaterally. PT pulses 1+ on the left but nonpalpable and very difficult if at all able to be dopplered on the right. She has 5 out of 5 ankle and toe plantarflexion dorsiflexion inversion eversion and knee flexion and extension strength. Her foot and leg are nontender without any significant swelling. Resisted knee flexion causes increased pain on the posterolateral aspect of the right knee. She has limited but painless movement of her right hip. She can do an active straight leg raise and her passive straight leg raise causes some stretching on the posterolateral knee but no significant radicular symptoms. The right knee is warm but not red or indurated. There is a small effusion in the right knee and her range of motion is 0 to 90 degrees. She has no tenderness of the medial side of the knee medial joint line anterior knee or suprapatellar pouch. There is no tenderness of the lateral joint line or lateral side of the knee. The fibular head and peroneal nerve are nontender. Her tenderness is posterolateral at the level of the biceps femoris tendon and into the popliteal fossa. Cruciates and collaterals are intact although she has slightly more than 1+ LCL laxity at 20 degrees of knee flexion. Her knee is stable in full extension. Her contralateral knee has had previous surgery and she has no varus valgus laxity at 0 or 20. Results & Data Vital Signs (Past 12 Hours) Vital Signs Temp Pulse Pulse Resp BP BP Pulse Ox 04/16/24 16:18 70 04/16/24 16:15 36.4 C L 67 16 123/72 97 04/16/24 14:38 36.6 C 68 14 117/69 97 04/16/24 10:23 75 20 120/72 97 04/16/24 09:16 36.6 C 101 H 18 128/86 97 O2 Del Method 04/16/24 16:18 07/05/24 16:15 Room Air 04/16/24 14:38 Room Air 04/16/24 10:23 Room Air 04/16/24 09:16 Room Air Laboratory Results Laboratory Results WBC 8.02 K/ul (4.8-10.8) 04/16/24 09:42 RBC 3.77 M/uL (4.20-5.40) L 04/16/24 09:42 Hgb 11.4 g/dl (12.0-16.0) L 04/16/24 09:42 Hct 36.3 % (37.0-47.0) L 04/16/24 09:42 MCV 96.3 fL (80.0-100.0) 04/16/24 09:42 MCH 30.2 pg (25.0-34.0) 04/16/24 09:42 MCHC 31.4 g/dL (32.0-36.0) L 04/16/24 09:42 RDW Std Deviation 50.5 fL (36.4-46.3) H 04/16/24 09:42 RDW Coeff of Lela 14.2 % (11.5-14.5) 04/16/24 09:42 Plt Count 165 K/uL (130-400) 04/16/24 09:42 MPV 10.0 fL (9.4-12.4) 04/16/24 09:42 Immature Gran % (Auto) 0.4 % 04/16/24 09:42 Neut % (Auto) 78.1 % 04/16/24 09:42 Lymph % (Auto) 12.8 % 04/16/24 09:42 Mclennan % (Auto) 7.4 % 04/16/24 09:42 Eos % (Auto) 1.1 % 04/16/24 09:42 Baso % (Auto) 0.2 % 04/16/24 09:42 Neut # (Auto) 6.26 K/uL (1.40-6.50) 04/16/24 09:42 Lymph # (Auto) 1.03 K/uL (1.20-3.40) L 04/16/24 09:42 Mclennan # (Auto) 0.59 K/uL (0.11-0.59) 04/16/24 09:42 Eos # (Auto) 0.09 K/uL (0.00-0.50) 04/16/24 09:42 Baso # (Auto) 0.02 K/uL (0.00-0.20) 04/16/24 09:42 Immature Gran # (Auto) 0.03 K/uL (0.01-0.20) 04/16/24 09:42 ESR 40 mm/hr (0-30) H 04/16/24 09:42 PT 10.9 Seconds (9.0-12.0) 04/16/24 11:05 INR 1.0 (0.9-1.1) 04/16/24 11:05 APTT 27 Seconds (21-31) 04/16/24 11:05 PTT Ratio 1.0 04/16/24 11:05 Sodium 137 mmol/L (136-145) 04/16/24 09:42 Potassium 4.3 mmol/L (3.5-5.1) 04/16/24 09:42 Chloride 105 mmol/L (98-107) 04/16/24 09:42 Carbon Dioxide 25 mmol/L (21-32) 04/16/24 09:42 Anion Gap 7 (3-11) 04/16/24 09:42 BUN 18 mg/dl (6-23) 04/16/24 09:42 Creatinine 1.19 mg/dl (0.6-1.2) 04/16/24 09:42 Est Cr Clr Drug Dosing 49.3 ml/min 04/16/24 09:42 Est GFR ( Amer) 55.5 ml/min 04/16/24 09:42 Est GFR (Non-Af Amer) 47.9 ml/min 04/16/24 09:42 BUN/Creatinine Ratio 15.1 (10-20) 04/16/24 09:42 Glucose 89 mg/dl (70-99(Fasting)) 04/16/24 09:42 Calcium 9.0 mg/dl (8.6-10.3) 04/16/24 09:42 Total Bilirubin 0.6 mg/dl (0.2-1.0) 04/16/24 09:42 AST 40 U/L (13-39) H 04/16/24 09:42 ALT 91 U/L (7-52) H 04/16/24 09:42 Alkaline Phosphatase 141 U/L (34-104) H 04/16/24 09:42 C-Reactive Protein 2.51 mg/dl (0-0.5) H 04/16/24 09:42 Total Protein 7.0 gm/dl (6.0-8.3) 04/16/24 09:42 Albumin 4.3 gm/dl (3.4-5.0) 04/16/24 09:42 Globulin 2.7 gm/dl (2.5-4.0) 04/16/24 09:42 Albumin/Globulin Ratio 1.6 (0.9-2) 04/16/24 09:42 Acetaminophen 12 ug/ml (10-30) 04/16/24 11:05 Lyme Disease Screen Negative (Negative) 04/16/24 09:42 Impressions Knee X-Ray 04/16/24 09:29 XR knee RT 3V CLINICAL HISTORY: Right knee . COMPARISON: None FINDINGS: A stent within the distal superficial femoral artery is incidentally noted. A moderate size joint effusion is present without lipohemarthrosis. No fracture is identified. There is mild medial and patellofemoral compartment osteophytosis. Right knee soft tissue swelling is present. IMPRESSION: 1. No fractures within the right knee. 2. Moderate size joint effusion. 3. Mild medial and patellofemoral compartment degenerative changes. ACT 112: Negative or not required by law. Electronically signed by: Lambert Ivory M.D. 04/16/2024 11:18 AM Venous Doppler Study 04/16/24 09:29 US venous doppler LE RT CLINICAL HISTORY: R knee pain TECHNIQUE: Right lower extremity real-time compression venous ultrasound with Color Doppler imaging. Utilizing real-time ultrasonic imaging multiple real time high-resolution ultrasonic images with compression and noncompression maneuvers of the deep venous system in addition to color doppler imaging were performed from the common femoral vein through the proximal calf veins. COMPARISON: None available at the time of this dictation. FINDINGS/IMPRESSION: Currently there is normal compressibility of the deep venous system from the common femoral vein through the proximal calf veins. No superficial venous thrombosis is identified. ACT 112: Negative or not required by law. Electronically signed by: Ashwin Gupta M.D. 04/16/2024 10:20 AM
--- NOTE | 2024-04-16 17:11 | Procedure Note ---
Procedure Note Date of Service April 16, 2024 Note Procedure: Patient was placed in the supine position on the bed. Time out and verbal consent was obtained. Injection site was marked with my initials. Dr. Jones was present for the aspiration. Risk and benefits of the aspiration were discussed. Patient was willing to proceed. The right knee superolateral pouch was marked with my initials, cleansed with Betadine, cleansed with alcohol and using 18-gauge needle aspirated 22 cc of yellow slightly cloudy fluid from her right knee. No gross purulence. Patient tolerated the aspiration well. Pressure was applied for hemostasis. A Band-Aid was applied along with an Harlan bandage on her knee. Aspiration was sent for cell count, crystal analysis, and cultures. Will make her n.p.o. after midnight pending results. Coding
[2024-04-16] MEDS: ONDANSETRON INJ 2 MG/ML 2 ML VIAL IV PRN (17:29)
[2024-04-16] MEDS: MoRPHine SULFATE 4 MG/ML 1 ML CARP\\VIAL IV PRN (17:30)
[2024-04-16 17:51] LABS: Appearance Synovial Fluid Cloudy; Color Synovial Fluid Yellow; Mononuclear WBC Synovial 22.4 %; Polynuclear WBC Synovial 77.6 %; RBC Synovial Fluid Auto 10000 /uL; Source Synovial Fluid Right Knee; WBC Synovial Fluid Auto 18480 /ul (0-200)
[2024-04-16] MEDS: NAPROXEN 250 MG TAB PO STA (19:07)
[2024-04-16 20:04] LABS: Bilirubin Direct 0.1 mg/dl (0-0.2); Bilirubin,Total 0.5 mg/dl (0.2-1.0); Total Protein 6.6 gm/dl (6.0-8.3)
[2024-04-16] MEDS: CYANOCOBALAMIN (B-12) 500 MCG TABLET PO SCH (20:24)
[2024-04-16] MEDS: ASPIRIN 81 MG ECTAB PO SCH (20:24)
[2024-04-16] MEDS: CLOPIDOGREL BISULFATE 75 MG TAB PO SCH (20:24)
[2024-04-16] MEDS: buPROPion SR 150 MG TABCR PO SCH (20:24)
[2024-04-16] MEDS: CeleBREX 200 MG CAP PO SCH (20:24)
[2024-04-16] MEDS: ATORVASTATIN 40 MG TAB PO SCH (20:24)
[2024-04-16] MEDS: PANTOprazole 40 MG TAB PO SCH (20:25)
[2024-04-16] MEDS: OXYBUTYNIN CHLORIDE XL 5 MG TABCR PO SCH (20:25)
[2024-04-16] MEDS: LORATADINE 10 MG TAB PO SCH (20:25)
[2024-04-17 06:36] LABS: Hemoglobin 10.3 g/dl (12.0-16.0); Mean Corpuscular Hemoglobin 30.6 pg (25.0-34.0); Mean Corpuscular Hgb Conc 31.2 g/dL (32.0-36.0); Mean Corpuscular Volume 97.9 fL (80.0-100.0); Platelet Count 132 K/uL (130-400); RDW Coefficient of Variation 14.2 % (11.5-14.5); RDW Standard Deviation 50.9 fL (36.4-46.3); Red Blood Count 3.37 M/uL (4.20-5.40); White Blood Count 5.52 K/ul (4.8-10.8)
[2024-04-17 06:52] LABS: Calcium 8.3 mg/dl (8.6-10.3); Potassium 4.5 mmol/L (3.5-5.1)
[2024-04-17 06:58] LABS: BUN Creatinine Ratio 12.8 (10-20); Creatinine Clr Calc Pharmacy 53.8 ml/min; Est GFR (African American) 61.7 ml/min; Est GFR (Non-African American) 53.2 ml/min
[2024-04-17] MEDS: PNEUMOCOCCAL VACCINE (PCV20) 20-VAL CONJ-DIP CRM/PF 0.5 ML SYR IM ONE (07:22)
--- NOTE | 2024-04-17 10:14 | Orthopedic Progress Note ---
Date of Service April 17, 2024 Assessment & Plan Admission and Anticipated Discharge Date Admission Date: April 16, 2024 Orthopedic Progress Note The patient reports symptomatic improvement. She has not had any recent illnesses. She did have right wrist surgery by Dr. Eden Emanuel back in February but that is doing fine. Crystals are pending. White blood cell count within the right knee joint fluid is approximately 18,500. Increased compared to the previous aspiration which was approximately 8000. Consistent with inflammation. Culture is no growth to date. Will go ahead and let her eat. Spoke with hospitalist. Her examination today demonstrates an intact active straight leg raise. Skin wrinkles are intact without knee induration or redness. There is increased warmth in the right knee and she has a small effusion which has reaccumulated in the right knee joint. The knee is nontender to palpation and she has range of motion 0-90 limited by posterolateral knee pain. Spoke with nurse about walker. She may weight-bear as tolerated but should focus on rest elevation and icing. Will continue to monitor. I do not see need for operative intervention at this time. She is also to be started on anti-inflammatory, Toradol.Differential diagnosis could include reactive arthritis although there is not been any recent illness. Gout or pseudogout. Reaction to her recent injection. Low probability of bacterial infection.
[2024-04-17 10:27] LABS: Albumin Level 3.8 gm/dl (3.4-5.0); Bilirubin Direct 0.1 mg/dl (0-0.2); Bilirubin,Total 0.6 mg/dl (0.2-1.0); Total Protein 6.4 gm/dl (6.0-8.3)
[2024-04-17 10:44] LABS: INR 1.1 (0.9-1.1); Prothrombin Time 11.5 Seconds (9.0-12.0)
--- NOTE | 2024-04-17 11:03 | Hospitalist Progress Note ---
Date of Service April 17, 2024 Assessment & Plan (1) Right knee pain: (2) Effusion of right knee joint: (3) Tylenol ingestion: (4) Transaminitis: Plan 64 y/o F with PMHx of dyslipidemia, peripheral vascular disease, history of small bowel obstruction, history of colonic polyps and other problems listed below who presented to the ED today for evaluation of right knee pain and was found to have a moderate size joint effusion on x-ray of her right knee. She was seen by Dr. Brannon at [facility] ([facility]) on 04/07. Imaging of the right knee at that time revealed no evidence of fracture, but did show moderate suprapatellar effusion. That effusion was subsequently aspirated and she received corticosteroid injections in her right knee. Previous joint aspiration had negative culture, WBC ~8K, crystals negative. Right Knee Pain Effusion of Right Knee Joint Admitting Imaging: R Knee XR --> "No fractures within the right knee. Moderate-sized joint effusion. Mild medial and patellofemoral compartment degenerative changes." US Venous Doppler RLE --> "Normal compressibility of the deep venous system from the common femoral vein through the proximal calf veins; no superficial venous thrombosis is identified." Lyme disease screen negative; WBC count WNL CRP elevated at 2.51 & ESR elevated at 40 on admission; no leukocytosis. S/p arthrocentesis Reviewed synovial fluid analysis: WBC 18K. No crystals Synovial culture negative so far Discussed with Ortho surgeon. Likely reactive arthritis Pain control IV ketorolac PRN Unintentional Tylenol overdose Acute Transaminitis Pt has been taking ibuprofen, acetaminophen and an Equate-brand arthritis medication. Pt unaware that the arthritis medication also contained acetaminophen as well. Per Dr. Lam's documentation: Pt has been taking "two 500 mg pills every 4-6 hours she estimates she did this about 3 times a day for total of 3000 g additionally she has been taking long-acting Tylenol 650 mg x 2 at a time x 2 or 3 a day. This puts her total Tylenol dosage well over 5000 g for the last 2 days." PT/INR WNL at time of admission; Mildly elevated LFT: AST 40, ALT 91 and Alk Phos 141. Acetaminophen level on admission 12 Poison control consulted by ED --> Recommend admitting patient for N- acetylcysteine, which was ordered per protocol. Acetaminophen levels have been <3 since. LFT trending down Completed NAC today H/O Peripheral Vascular Disease: Continue [employer] ASA and Plavix for now pending orthopedic evaluation. Osteoarthritis: Continue [employer] celecoxib for now. Other Chronic Medical Conditions: Dyslipidemia, GERD, urinary incontinence, seasonal allergies, tobacco use disorder --> Continue all [employer] medications designated for these conditions. DVT Prophylaxis: SCDs Code Status: FULL CODE PCP: Jerry Asher MD I spent a total of 50 minutes coordinating, documenting and providing care for this patient excluding time spent in performance of separately billed services Admission and Anticipated Discharge Date Admission Date: April 16, 2024 Subjective Patient seen and examined Reports pain is improved with arthrocentesis. Still significant especially with movement Denied all other other complaints on ROS Physical Exam Constitutional: + well hydrated; no acute distress Eyes: PERRL, conjunctivae normal, anicteric sclerae ENMT: external ear and nose normal, oropharynx normal Respiratory: normal respiratory effort, lungs clear to auscultation Cardiovascular: Rate/Rhythm: regular rate and regular rhythm Gastrointestinal (Abdomen): normal bowel sounds, soft, nontender, no hepatosplenomegaly Musculoskeletal: Right knee ROM limited due to pain Neurologic: PERRL, EOMI, accommodation nl, no face palsy, no dysarthria Psychiatric: A+Ox3, euthymic affect Results & Data Results & Data Vital Signs (Past 12 Hours) Vital Signs Temp Pulse Pulse Resp BP Pulse Ox O2 Del Method 04/17/24 07:41 36.6 C 71 16 96/60 L 96 Room Air 04/17/24 07:01 73 04/17/24 03:11 36.6 C 79 16 97/66 L 94 Room Air 04/16/24 23:23 36.7 C 82 18 109/65 97 Room Air 04/16/24 23:07 94 H Laboratory Results Abnormal lab results 04/16/24 04/16/24 04/17/24 Range/Units 17:13 19:21 05:45 RBC 3.37 L (4.20-5.40) M/uL Hgb 10.3 L (12.0-16.0) g/dl Hct 33.0 L (37.0-47.0) % MCHC 31.2 L (32.0-36.0) g/dL RDW Std Deviation 50.9 H (36.4-46.3) fL Sodium 135 L (136-145) mmol/L Calcium 8.3 L (8.6-10.3) mg/dl ALT 75 H (7-52) U/L Alkaline Phosphatase 129 H (34-104) U/L Synovial WBC (Auto) 85385 H (0-200) /ul Acetaminophen < 3 L (10-30) ug/ml 04/17/24 Range/Units 09:50 RBC (4.20-5.40) M/uL Hgb (12.0-16.0) g/dl Hct (37.0-47.0) % MCHC (32.0-36.0) g/dL RDW Std Deviation (36.4-46.3) fL Sodium (136-145) mmol/L Calcium (8.6-10.3) mg/dl ALT 59 H (7-52) U/L Alkaline Phosphatase 123 H (34-104) U/L Synovial WBC (Auto) (0-200) /ul Acetaminophen < 3 L (10-30) ug/ml (1) Right knee pain Chronicity: unspecified Qualified Code(s): M25.561 - Pain in right knee
[2024-04-17] MEDS: KETOROLAC TROMETHAMINE 15 MG/ML VIAL IV PRN (20:29)
[2024-04-17] MEDS: MoRPHine SULFATE 4 MG/ML 1 ML CARP\\VIAL IV PRN (21:38)
[2024-04-18 08:08] LABS: Mean Corpuscular Hemoglobin 30.3 pg (25.0-34.0); Mean Corpuscular Hgb Conc 31.3 g/dL (32.0-36.0); Mean Platelet Volume 9.9 fL (9.4-12.4); Platelet Count 122 K/uL (130-400); RDW Coefficient of Variation 13.9 % (11.5-14.5); RDW Standard Deviation 49.7 fL (36.4-46.3); White Blood Count 4.78 K/ul (4.8-10.8)
[2024-04-18 08:25] LABS: Albumin Globulin Ratio 1.6 (0.9-2); Albumin Level 3.8 gm/dl (3.4-5.0); BUN Creatinine Ratio 19.6 (10-20); Bilirubin,Total 0.6 mg/dl (0.2-1.0); Creatinine Clr Calc Pharmacy 57.5 ml/min; Est GFR (African American) 66.8 ml/min; Est GFR (Non-African American) 57.7 ml/min; Globulin 2.4 gm/dl (2.5-4.0); Potassium 4.3 mmol/L (3.5-5.1); Total Protein 6.2 gm/dl (6.0-8.3)
[2024-04-18 08:36] LABS: Prothrombin Time 11.1 Seconds (9.0-12.0)
--- NOTE | 2024-04-18 10:07 | Hospitalist Progress Note ---
Date of Service April 18, 2024 Assessment & Plan (1) Right knee pain: (2) Effusion of right knee joint: (3) Tylenol ingestion: (4) Transaminitis: Plan 64 y/o F with PMHx of dyslipidemia, peripheral vascular disease, history of small bowel obstruction, history of colonic polyps and other problems listed below who presented to the ED today for evaluation of right knee pain and was found to have a moderate size joint effusion on x-ray of her right knee. She was seen by Dr. Brannon at [facility] ([facility] [place]) on 04/07. Imaging of the right knee at that time revealed no evidence of fracture, but did show moderate suprapatellar effusion. That effusion was subsequently aspirated and she received corticosteroid injections in her right knee. Previous joint aspiration had negative culture, WBC ~8K, crystals negative. Right Knee Pain Effusion of Right Knee Joint Admitting Imaging: R Knee XR --> "No fractures within the right knee. Moderate-sized joint effusion. Mild medial and patellofemoral compartment degenerative changes." US Venous Doppler RLE --> "Normal compressibility of the deep venous system from the common femoral vein through the proximal calf veins; no superficial venous thrombosis is identified." Lyme disease screen negative; WBC count WNL CRP elevated at 2.51 & ESR elevated at 40 on admission; no leukocytosis. S/p arthrocentesis on 04/16 Reviewed synovial fluid analysis: WBC 18K. No crystals Synovial culture negative so far Likely reactive arthritis Continue current pain regimen Awaiting PT/OT eval Unintentional Tylenol overdose Acute Transaminitis Pt had been taking ibuprofen, acetaminophen and an Equate-brand arthritis medication. Pt unaware that the arthritis medication also contained acetaminophen as well. Per Dr. Lam's documentation: Pt has been taking "two 500 mg pills every 4-6 hours she estimates she did this about 3 times a day for total of 3000 g additionally she has been taking long-acting Tylenol 650 mg x 2 at a time x 2 or 3 a day. This puts her total Tylenol dosage well over 5000 g for the last 2 days." PT/INR WNL at time of admission; Mildly elevated LFT: AST 40, ALT 91 and Alk Phos 141. Acetaminophen level on admission 12 Poison control consulted by ED --> Recommend admitting patient for N- acetylcysteine, which was ordered per protocol. Acetaminophen levels have been <3 since. LFT trending down Completed NAC on 04/17/24 H/O Peripheral Vascular Disease: Continue [employer] ASA and Plavix for now pending orthopedic evaluation. Osteoarthritis: Continue [employer] celecoxib for now. Other Chronic Medical Conditions: Dyslipidemia, GERD, urinary incontinence, seasonal allergies, tobacco use disorder --> Continue all [employer] medications designated for these conditions. DVT Prophylaxis: SCDs Code Status: FULL CODE PCP: Jerry Asher MD I spent a total of 40 minutes coordinating, documenting and providing care for this patient excluding time spent in performance of separately billed services Admission and Anticipated Discharge Date Admission Date: April 16, 2024 Subjective Patient seen and examined. Reports pain continues to improve with current pain regimen Reports able to move a bit more now with improved pain Denies any other complaints Physical Exam Constitutional: + well hydrated; no acute distress Eyes: PERRL, conjunctivae normal, anicteric sclerae ENMT: external ear and nose normal, oropharynx normal Respiratory: normal respiratory effort, lungs clear to auscultation Cardiovascular: Rate/Rhythm: regular rate and regular rhythm Gastrointestinal (Abdomen): normal bowel sounds, soft, nontender, no hepatosplenomegaly Ostomy in situ Musculoskeletal: Right knee swelling improved Mild tenderness posteriorly Improved ROM Neurologic: PERRL, EOMI, accommodation nl, no face palsy, no dysarthria Psychiatric: A+Ox3, euthymic affect Results & Data Results & Data Vital Signs (Past 12 Hours) Vital Signs Temp Pulse Pulse Resp BP Pulse Ox O2 Del Method 04/18/24 08:41 36.7 C 89 16 121/66 94 Room Air 04/18/24 06:51 69 04/18/24 02:24 36.5 C 81 16 109/62 97 Room Air 04/17/24 23:11 78 04/17/24 22:48 37 C 80 20 90/59 L 95 Room Air Laboratory Results Abnormal lab results 04/18/24 Range/Units 07:46 WBC 4.78 L (4.8-10.8) K/ul RBC 3.30 L (4.20-5.40) M/uL Hgb 10.0 L (12.0-16.0) g/dl Hct 32.0 L (37.0-47.0) % MCHC 31.3 L (32.0-36.0) g/dL RDW Std Deviation 49.7 H (36.4-46.3) fL Plt Count 122 L (130-400) K/uL Sodium 134 L (136-145) mmol/L Alkaline Phosphatase 122 H (34-104) U/L Globulin 2.4 L (2.5-4.0) gm/dl (1) Right knee pain Chronicity: unspecified Qualified Code(s): M25.561 - Pain in right knee
[2024-04-18 15:38] LABS: Magnesium 1.8 mg/dl (1.7-2.4); Phosphorus 3.5 mg/dl (2.5-4.9)
--- NOTE | 2024-04-18 17:08 | Orthopedic Progress Note ---
Date of Service April 18, 2024 Assessment & Plan (1) Effusion of knee joint right: Admission and Anticipated Discharge Date Admission Date: April 16, 2024 Orthopedic Progress Note Improvement noted. Pain is gone from a 10 to a 7 out of 10. Not resolved. Up with PT today and generally felt better today than previous. She is able to do a straight leg raise. There is no induration or erythema. She does have t enderness over the posterolateral aspect of her knee more near the biceps femoris tendon. Knee range of motion 0 to about 100 today with a small intra- articular effusion. Knee otherwise nontender. Crystals negative. Culture no growth to date x 48 hours. She does not have gout or anything like that. She does not have a bacterial infection. Could be a reactive arthritis but she does not have anything recently in terms of a strep throat etc. There could be internal derangement of the knee causing pain but that typically would not cause significant inflammation. If her pain can be managed it is possible to consider discharge and further workup as an outpatient. If this cannot be managed then other options would be getting a rheumatology consult or getting an MRI of her right knee. Does not look radicular in nature.
[2024-04-19 05:52] LABS: Hematocrit (blood only) 30.3 % (37.0-47.0); Hemoglobin 9.6 g/dl (12.0-16.0); Mean Corpuscular Hemoglobin 30.6 pg (25.0-34.0); Mean Corpuscular Hgb Conc 31.7 g/dL (32.0-36.0); Mean Corpuscular Volume 96.5 fL (80.0-100.0); Mean Platelet Volume 9.9 fL (9.4-12.4); Platelet Count 127 K/uL (130-400); RDW Coefficient of Variation 13.9 % (11.5-14.5); RDW Standard Deviation 49.4 fL (36.4-46.3); Red Blood Count 3.14 M/uL (4.20-5.40); White Blood Count 4.79 K/ul (4.8-10.8)
[2024-04-19 06:12] LABS: Albumin Globulin Ratio 1.5 (0.9-2); Albumin Level 3.8 gm/dl (3.4-5.0); BUN Creatinine Ratio 19.3 (10-20); Bilirubin,Total 0.5 mg/dl (0.2-1.0); Calcium 8.9 mg/dl (8.6-10.3); Creatinine Clr Calc Pharmacy 51.4 ml/min; Est GFR (African American) 58.4 ml/min; Est GFR (Non-African American) 50.4 ml/min; Globulin 2.6 gm/dl (2.5-4.0); Potassium 4.2 mmol/L (3.5-5.1); Total Protein 6.4 gm/dl (6.0-8.3)
[2024-04-19 08:06] VITALS: RESP 16; TEMP 98.1
[2024-04-19] MEDS ORDERED: traMADol HCL 50 MG TABLET PO PRN (08:11)
--- NOTE | 2024-04-19 09:58 | Orthopedic Progress Note ---
Date of Service April 19, 2024 Assessment & Plan (1) Effusion of knee joint right: Plan: Weightbearing as tolerated with walker assistance PT/OT Pain control with p.o. pain medication Will most likely discharge her on a prescription for Celebrex Ice with easy wrap Orthopedically patient is stable for discharge Follow-up at [facility] orthopedics in 2 weeks With questions contact our clinic at [phone] Admission and Anticipated Discharge Date Admission Date: April 16, 2024 Subjective This 64-year-old female is seen today in follow-up of a right knee joint effusion with significant pain that makes it difficult for her to ambulate. Patient was seen in the emergency department on April 16 and and admitted for concern that she had a septic arthritis in her right knee. Aspiration was performed and patient has no growth of bacteria. Her effusion may be due to reactive arthritis. She states she is much better today but her knee is beginning to fill with fluid again. She feels that she can be discharged home. She states her pain is well-controlled with the IV Toradol and the Celebrex that she is receiving. She is currently on Plavix for a stent in her right lower extremity. Currently she denies chest pain, shortness of breath, fever, chills, sweats, nausea, vomiting, diarrhea or difficulty voiding. Review of Systems Review of Systems: All systems reviewed & are unremarkable except as noted in Subjective Physical Exam Physical Exam: Right lower extremity: Knee range of motion was from 0 degrees of extension to 105 degrees of flexion. She does have a 1+ effusion. She experiences tenderness to palpation over the lateral joint line and posterior lateral aspect of her knee with palpable Mireles's cyst. She has no laxity with varus or valgus stressing. She does have visible valgus malalignment. AP dorsi and Bebeto test are negative. Patient is able to perform active straight leg raise test. She is neurovascularly intact in the right lower extremity. Results & Data Vital Signs (Past 12 Hours) Vital Signs Temp Pulse Pulse Resp BP BP Pulse Ox 04/19/24 08:06 36.7 C 109 H 16 123/67 97 04/19/24 02:05 69 04/19/24 01:37 36.8 C 74 18 115/68 95 04/18/24 23:02 36.8 C 73 16 93/55 L 95 O2 Del Method 04/19/24 08:06 Room Air 04/19/24 02:05 04/19/24 01:37 Room Air 04/18/24 23:02 Room Air Diagnostic Findings Laboratory Results WBC 4.79 K/ul (4.8-10.8) L 04/19/24 05:35 RBC 3.14 M/uL (4.20-5.40) L 04/19/24 05:35 Hgb 9.6 g/dl (12.0-16.0) L 04/19/24 05:35 Hct 30.3 % (37.0-47.0) L 04/19/24 05:35 MCV 96.5 fL (80.0-100.0) 04/19/24 05:35 MCH 30.6 pg (25.0-34.0) 04/19/24 05:35 MCHC 31.7 g/dL (32.0-36.0) L 04/19/24 05:35 RDW Std Deviation 49.4 fL (36.4-46.3) H 04/19/24 05:35 RDW Coeff of Lela 13.9 % (11.5-14.5) 04/19/24 05:35 Plt Count 127 K/uL (130-400) L 04/19/24 05:35 MPV 9.9 fL (9.4-12.4) 04/19/24 05:35 Immature Gran % (Auto) 0.4 % 04/16/24 09:42 Neut % (Auto) 78.1 % 04/16/24 09:42 Lymph % (Auto) 12.8 % 04/16/24 09:42 Twiggs % (Auto) 7.4 % 04/16/24 09:42 Eos % (Auto) 1.1 % 04/16/24 09:42 Baso % (Auto) 0.2 % 04/16/24 09:42 Neut # (Auto) 6.26 K/uL (1.40-6.50) 04/16/24 09:42 Lymph # (Auto) 1.03 K/uL (1.20-3.40) L 04/16/24 09:42 Twiggs # (Auto) 0.59 K/uL (0.11-0.59) 04/16/24 09:42 Eos # (Auto) 0.09 K/uL (0.00-0.50) 04/16/24 09:42 Baso # (Auto) 0.02 K/uL (0.00-0.20) 04/16/24 09:42 Immature Gran # (Auto) 0.03 K/uL (0.01-0.20) 04/16/24 09:42 ESR 40 mm/hr (0-30) H 04/16/24 09:42 PT 11.1 Seconds (9.0-12.0) 04/18/24 07:46 INR 1.0 (0.9-1.1) 04/18/24 07:46 APTT 27 Seconds (21-31) 04/16/24 11:05 PTT Ratio 1.0 04/16/24 11:05 Sodium 135 mmol/L (136-145) L 04/19/24 05:35 Potassium 4.2 mmol/L (3.5-5.1) 04/19/24 05:35 Chloride 104 mmol/L (98-107) 04/19/24 05:35 Carbon Dioxide 26 mmol/L (21-32) 04/19/24 05:35 Anion Gap 5 (3-11) 04/19/24 05:35 BUN 22 mg/dl (6-23) 04/19/24 05:35 Creatinine 1.14 mg/dl (0.6-1.2) 04/19/24 05:35 Est Cr Clr Drug Dosing 51.4 ml/min 04/19/24 05:35 Est GFR ( Amer) 58.4 ml/min 04/19/24 05:35 Est GFR (Non-Af Amer) 50.4 ml/min 04/19/24 05:35 BUN/Creatinine Ratio 19.3 (10-20) 04/19/24 05:35 Glucose 83 mg/dl (70-99(Fasting)) 04/19/24 05:35 Calcium 8.9 mg/dl (8.6-10.3) 04/19/24 05:35 Phosphorus 3.5 mg/dl (2.5-4.9) 04/18/24 07:46 Magnesium 1.8 mg/dl (1.7-2.4) 04/18/24 07:46 Total Bilirubin 0.5 mg/dl (0.2-1.0) 04/19/24 05:35 Direct Bilirubin 0.1 mg/dl (0-0.2) 04/17/24 09:50 AST 18 U/L (13-39) 04/19/24 05:35 ALT 41 U/L (7-52) 04/19/24 05:35 Alkaline Phosphatase 116 U/L (34-104) H 04/19/24 05:35 C-Reactive Protein 2.51 mg/dl (0-0.5) H 04/16/24 09:42 Total Protein 6.4 gm/dl (6.0-8.3) 04/19/24 05:35 Albumin 3.8 gm/dl (3.4-5.0) 04/19/24 05:35 Globulin 2.6 gm/dl (2.5-4.0) 04/19/24 05:35 Albumin/Globulin Ratio 1.5 (0.9-2) 04/19/24 05:35 Fluid Comment 04/16/24 17:13 Synovial Source Right Knee 04/16/24 17:13 Synovial Color Yellow 04/16/24 17:13 Synovial Appearance Cloudy 04/16/24 17:13 Synovial WBC (Auto) 69547 /ul (0-200) H 04/16/24 17:13 Synovial RBC (Auto) 25762 /uL 04/16/24 17:13 Synovial Polynuclear % 77.6 % 04/16/24 17:13 Synovial Mononuclear % 22.4 % 04/16/24 17:13 Synovial Crystals 04/16/24 17:13 Acetaminophen < 3 ug/ml (10-30) L 04/17/24 09:50 Lyme Disease Screen Negative (Negative) 04/16/24 09:42 Impressions Knee X-Ray 04/16/24 09:29 XR knee RT 3V CLINICAL HISTORY: Right knee . COMPARISON: None FINDINGS: A stent within the distal superficial femoral artery is incidentally noted. A moderate size joint effusion is present without lipohemarthrosis. No fracture is identified. There is mild medial and patellofemoral compartment osteophytosis. Right knee soft tissue swelling is present. IMPRESSION: 1. No fractures within the right knee. 2. Moderate size joint effusion. 3. Mild medial and patellofemoral compartment degenerative changes. ACT 112: Negative or not required by law. Electronically signed by: Lambert Ivory M.D. 04/16/2024 11:18 AM Venous Doppler Study 04/16/24 09:29 US venous doppler LE RT CLINICAL HISTORY: R knee pain TECHNIQUE: Right lower extremity real-time compression venous ultrasound with Color Doppler imaging. Utilizing real-time ultrasonic imaging multiple real time high-resolution ultrasonic images with compression and noncompression maneuvers of the deep venous system in addition to color doppler imaging were performed from the common femoral vein through the proximal calf veins. COMPARISON: None available at the time of this dictation. FINDINGS/IMPRESSION: Currently there is normal compressibility of the deep venous system from the common femoral vein through the proximal calf veins. No superficial venous thrombosis is identified. ACT 112: Negative or not required by law. Electronically signed by: Ashwin Gupta M.D. 04/16/2024 10:20 AM
[2024-04-19 11:54] VITALS: PULSE 84; O2SAT 96
[2024-04-19 13:04] VITALS: BP 93/55
--- NOTE | 2024-04-19 16:30 | Discharge Summary ---
Date of Service April 19, 2024 Admission HPI Per Admitting Provider Bethany Terrell is a 64 y/o F with PMHx of dyslipidemia, peripheral vascular disease, history of small bowel obstruction, history of colonic polyps and other problems listed below who presented to the ED today for evaluation of right knee pain. History obtained from the patient and associated chart review. Patient c/o ongoing right knee pain since last month. She was seen by Dr. Brannon at [facility] ([facility]) on 04/07. Imaging of the right knee at that time revealed no evidence of fracture, but did show moderate suprapatellar effusion. That effusion was subsequently aspirated and she received cortic osteroid injections in her right knee. Patient states that she has been unable to appropriately move her right knee for the past 2 days. She describes excruciating right knee pain that radiates up and down her right leg. Patient has been taking ibuprofen, acetaminophen and an [id number] arthritis medication (that also contains acetaminophen). Appears that the patient has been taking an excessive dose of acetaminophen, >5,000mg, without even being aware of doing so. She denies any recent fevers, body aches or chills. No recent trauma to her right knee. Also denies any abdominal pain, bowel or urinary habit changes. She cannot get this right knee pain under control. Patient was unable to schedule an appointment with [facility] today; next available appointment was on Friday (04/19). Admission Exam Per Admitting Provider General: WD/WN, vitals as above, NAD, sitting up in bed, pleasant, conversing appropriately. A+Ox3, euthymic affect. HEENT: Normocephalic, atraumatic. Normal inspection, conjunctivae normal, anicteric sclerae. External ear and nose normal, oropharynx normal. Respiratory: Normal respiratory effort, lungs clear to auscultation, no wheeze, rales, rhonchi. No accessory muscle use. Cardiovascular: Regular rate, rhythm, no murmur, normal peripheral pulses, no BLE edema. Vessels: No JVD. Abdomen/GI: Normal bowel sounds, soft, nontender, no hepatosplenomegaly. Extremities/Musculoskeletal: Mild right knee swelling and tenderness to palpation, pain with movement of right leg. Neurologic: PERRL, EOMI, accommodation nl, no face palsy, no dysarthria, CN's II-XI not formally tested but appear grossly intact bilaterally. Skin: No rashes, normal color, warm/dry. No overlying erythema of right knee, right knee mildly warm to touch. Principal Diagnosis Right Knee joint effusion Transaminitis Unintentional Tylenol overdose Discharge Exam Constitutional + well hydrated; no acute distress Eyes PERRL, conjunctivae normal, anicteric sclerae ENMT external ear and nose normal, oropharynx normal Respiratory normal respiratory effort, lungs clear to auscultation Cardiovascular Rate/Rhythm: regular rate and regular rhythm Gastrointestinal (Abdomen) normal bowel sounds, soft, nontender, no hepatosplenomegaly Musculoskeletal Right knee swelling improved Mild tenderness posteriorly Neurologic PERRL, EOMI, accommodation nl, no face palsy, no dysarthria Psychiatric A+Ox3, euthymic affect Discharge Data Allergies Allergy/AdvReac Type Severity Reaction Status Date / Time morphine AdvReac Intermediate Vomiting Verified 06/22/23 15:16 Consultations 04/16/24 12:39 ED Decision to Admit Stat 04/16/24 13:42 Consult Orthopedic Surgery Routine Ordered Studies 04/16/24 09:29 US venous doppler LE RT Stat Hospital Course (1) Right knee pain: (2) Effusion of right knee joint: (3) Tylenol ingestion: (4) Transaminitis: Plan 64 y/o F with PMHx of dyslipidemia, peripheral vascular disease, history of small bowel obstruction, history of colonic polyps and other problems listed below who presented to the ED today for evaluation of right knee pain and was found to have a moderate size joint effusion on x-ray of her right knee. She was seen by Dr. Brannon at [facility] ([facility]) on 04/07. Imaging of the right knee at that time revealed no evidence of fracture, but did show moderate suprapatellar effusion. That effusion was subsequently aspirated and she received corticosteroid injections in her right knee. Previous joint aspiration had negative culture, WBC ~8K, crystals negative. Right Knee Pain Effusion of Right Knee Joint Admitting Imaging: R Knee XR --> "No fractures within the right knee. Moderate-sized joint effusion. Mild medial and patellofemoral compartment degenerative changes." US Venous Doppler RLE --> "Normal compressibility of the deep venous system from the common femoral vein through the proximal calf veins; no superficial venous thrombosis is identified." Lyme disease screen negative; WBC count WNL CRP elevated at 2.51 & ESR elevated at 40 on admission; no leukocytosis. S/p arthrocentesis on 04/16/24 Reviewed synovial fluid analysis: WBC 18K. No crystals Synovial culture negative so far Pain controlled Did well with PT/OT Continue celebrex. Few doses of tramadol given for severe pain not controlled by Tylenol and celebrex Patient to follow up with Orthopedic office Unintentional Tylenol overdose Acute Transaminitis Pt had been taking ibuprofen, acetaminophen and an Equate-brand arthritis medication. Pt unaware that the arthritis medication also contained acetaminophen as well. Per Dr. Lam's documentation: Pt has been taking "two 500 mg pills every 4-6 hours she estimates she did this about 3 times a day for total of 3000 g additionally she has been taking long-acting Tylenol 650 mg x 2 at a time x 2 or 3 a day. This puts her total Tylenol dosage well over 5000 g for the last 2 days." PT/INR WNL at time of admission; Mildly elevated LFT: AST 40, ALT 91 and Alk Phos 141. Acetaminophen level on admission 12 Poison control consulted by ED --> Recommend admitting patient for N- acetylcysteine, which was ordered per protocol. Acetaminophen levels have been <3 since. LFT trending down to normal Completed NAC on 04/17/24 Educated patient about acetaminophen dosing H/O Peripheral Vascular Disease: Continue [employer] ASA and Plavix for now pending orthopedic evaluation. Osteoarthritis: Continue [employer] celecoxib for now. Other Chronic Medical Conditions: Dyslipidemia, GERD, urinary incontinence, seasonal allergies, tobacco use disorder --> Continue all [employer] medications designated for these conditions. Total Time Total Time Spent Total Time Spent (In Minutes): 35 Total Time Includes: Examination of the Patient, Discharge Planning and Medicat ion Reconciliation Discharge Plan Discharge Items Patient Disposition: Home - Self-Care Reason For Visit: Right knee pain and swelling Discharge Diagnosis: Right Knee joint effusion Transaminitis Unintentional Tylenol overdose Condition on Discharge: Good Activity: Resume your previous activity Non-emergency contact: Primary Care Provider and Surgeon Call non-emergency contact if: you have any medication questions and your symptoms worsen Follow-up/Referrals: Jerry Asher MD [Primary Care Provider] - (Date & Time 04/23/2024 4:00 PM Provider Lita Hewitt MD [facility] ) Diet: Regular Addtl Attending Provider Instructions: Mrs Xander Harrison presented to the hospital with worsening right knee pain and swelling. You had knee joint aspiration which did not show infection. You are being discharged on Celebrex. Please use tylenol/acetaminophen as prescribed and be mindful not to exceed the daily limit as instructed. Take Tylenol 1000mg three times a day as needed for pain. Please mindful of acetaminophen content of any over the counter pain or cough medicine. Continue ice pack Please ensure follow up with your Primary Doctor and Orthopedic surgeon Pending Studies at Discharge: No Stand-Alone Forms: [facility], Sm[facility] Cess[facility] Medications and DC Order Prescriptions: New tramadol 50 mg Tablet 50 mg PO Q6H PRN (Reason: severe pain (scale score 7-10)) Qty: 10 0RF Rx Instructions: For severe pain not controlled with tylenol Continued solifenacin 10 mg tablet 10 mg PO HS bupropion HCl 150 mg Tablet Sustained-Release 12 Hr 150 mg PO BID atorvastatin 80 mg Tablet 80 mg PO HS cyanocobalamin (vitamin B-12) [Vitamin B-12] 1,000 mcg Tablet 1,000 mcg PO HS clopidogrel 75 mg Tablet 75 mg PO HS aspirin [Scot Low Dose Aspirin] 81 mg Tablet,Delayed Release (Dr/Ec) 81 mg PO HS ondansetron HCl 4 mg tablet 4 mg PO Q8H PRN (Reason: NAUSEA/VOMITING) loratadine [Claritin] 10 mg Tablet 10 mg PO HS celecoxib [Celebrex] 200 mg Capsule 200 mg PO HS Qty: 14 0RF pantoprazole 40 mg tablet,delayed release (DR/EC) 40 mg PO HS Qty: 30 0RF Changed acetaminophen [Tylenol Extra Strength] 500 mg Tablet 1,000 mg PO TID PRN (Reason: Pain) Qty: 0 0RF Discharge Orders: Discharge Order (Routine); Ordered 04/19/24 Ordered By: Keely Sheriff Admission Data Admit Date/Time: 04/16/24 12:45 Attending Provider: Keely Sheriff I. Admit Provider: López Fracnis Primary Care Provider: Jerry Asher Other Providers: Corwin Jones; López Francis Other Interventions: Discharge Summary Assessment (RN) Last Done: 04/19/24 13:02
== END 2024-04-19 14:14 | disposition home or self-care (01) | DRG 566 ==
LOC: ED 09:10 → INTOOBSV 12:45 → 2N 12:45 → SUATTDRO 12:45 → 2N 14:19